=== PATIENT | female | born 1940 | race Caucasian/White ===

== ENCOUNTER → 2016-09-21 | Outpatient (CLI) | payer MEDICARE, OTHER ==
[~2016-09-21] MED LIST: ADVA100A INH; ALBU6.7H INH; ASPI-110 PO; ASPI1TAB69 PO; BETA1TAB5 PO; BOSW5TAB PO; CALTTAB PO; CALTTAB6 PO; CETI10 PO; IBUP200T2 PO; MONT10TA4 PO; NAPR220C22 PO; NIAC500C PO; OMEG1CAP53 PO; VISICAP PO; ZYRT10CA PO
[2016-09-21 10:32] LABS: BLOOD, URINE NEG (NEG); GLUCOSE,URINE NEG (NEG); KETONE, URINE NEG (NEG); NITRITE,URINE NEG (NEG); PH, URINE 6.5 (5.0-8.5); SQUAMOUS EPITHELIAL CELL URINE 1 /hpf (0-5); URINE COLOR YELLOW (YELLW/STRAW)
[2016-09-21 10:34] LABS: COMMENT (UR) CULT NOT INDICATED; CULTURE IF INDICATED CULT NOT INDICATED
[2016-09-21 10:44] LABS: PROTHROMBIN TIME - PATIENT 10.7 SEC (9.8-11.6)
[2016-09-21 10:52] LABS: BICARBONATE 28.2 MEQ/L (21.0-32.0); POTASSIUM 3.9 MEQ/L (3.5-5.1)
--- NOTE | 2016-09-21 11:03 | RADRPT ---
EXAM DATE/TIME: 09/21/2016 10:39 [facility] COMPARISON: No previous studies available for comparison. INDICATIONS : Evaluate for penumonia, pneumothorax or communicable disease. Pre op for arthroscopic knee surgery. MEDICAL HISTORY : Asthma SURGICAL HISTORY : None. ENCOUNTER: Initial ACUITY: 1 day PAIN SCORE: 0/10 LOCATION: chest FINDINGS: PA and lateral views of the chest demonstrate the lungs to be symmetrically aerated without evidence of mass, infiltrate or effusion. The cardiomediastinal contours are unremarkable. Osseous structure s are intact. CONCLUSION: No acute disease. Gerda Solis MD on September 21, 2016 at 11:01 Board Certified Radiologist. This report was verified electronically.
--- NOTE | 2016-09-22 17:50 | EKG ---
Date Performed: 09/21/2016 Time Performed: 09:58:28 PTAGE: 75 years EKG: Sinus rhythm POSSIBLE RIGHT VENTRICULAR CONDUCTION DELAY BORDERLINE ECG NO PREVIOUS TRACING DOCTOR: Gena Galvan Interpretating Date/Time 09/22/2016 17:48:12
== END ==
LOC: CPRE 09:31
PROVIDERS: ATTEND Orthopaedic Surgery
DX: Z01.810 Encounter for preprocedural cardiovascular examination (principal); Z01.811 Encounter for preprocedural respiratory examination; Z01.812 Encounter for preprocedural laboratory examination; R94.31 Abnormal electrocardiogram [ECG] [EKG]; S83.231A Complex tear of medial meniscus, current injury, right knee, initial encounter; X58.XXXA Exposure to other specified factors, initial encounter
CPT/HCPCS: 36415; 71020; 80048; 81001; 85610; 93005

== ENCOUNTER → 2016-09-29 | Day surgery (SDC) | payer MEDICARE, OTHER ==
--- NOTE | 2016-09-26 08:37 | MH ---
cc: MICHELLE HERCULES DATE OF ADMISSION: 09/29/2016 ADMITTING DIAGNOSES 1. Complex tear of the medial meniscus right knee. 2. Osteoarthritis right knee. 3. Effusion right knee. 4. Synovitis right knee. 5. Popliteal cyst right knee. 6. Pain right knee. HISTORY The patient is a 75-year-old white female who has experienced pain of her right knee of at least two months duration. In July of this past year while conforming to routine walking exercise activity, she became symptomatic with pain about the medial aspect of her right knee. She returned home and applied ice and elevated her extremity and thereafter conformed to modified activities. Her pain persisted. She was later seen by her primary care physician. Dr. Banks, who treated the patient with a cortisone injection that unfortunately did not prove to be of any appreciable benefit. She was also prescribed pain medication that was not well tolerated secondary to generalized restless sensation that interfered with the patient's ability to sleep comfortably through the night. She had been taking Advil with minimal benefit. She subsequently underwent an MRI scan of her right knee, the results of which identified a large complex tear of the medial meniscus involving the posterior horn with an extrusion of the body segment. There was osteoarthritic findings about the medial and patellofemoral compartments as well as a subacute-appearing nondisplaced subchondral insufficiency fracture of the medial tibial plateau. An effusion was associated with a moderately severe synovitis and a large popliteal cyst. The patient remained symptomatic with pain about her right knee, experiencing difficulty with all weightbearing activities. She was later seen by the undersigned physician in August of this past year and at that time she described ongoing difficulties as related to ambulatory activities. Her x-ray studies did reveal some mild degenerative changes suggestive about the medial compartment, a more pronounced degenerative process of the patellofemoral articulation. Findings and treatment options were reviewed with the patient at that time. The pros and cons of continuing with conservative management versus operative intervention involving arthroscopic surgery were outlined in detail. Emphasis was made regarding the fact that the decision to proceed with surgery would be left entirely to the patient's discretion and an arthroscopic surgery in itself would not be considered a long-term solution regarding her underlying arthritic condition. The patient indicated her full understanding in this regard. She felt that her symptoms had progressed to a point in time where she was desirous of proceeding with the arthroscopic procedure and, in compliance with her wishes, she is currently being admitted in order that the above be accomplished. PAST MEDICAL HISTORY, HOSPITALIZATIONS AND SURGERIES 1. Varicose vein stripping of the left leg. 2. Partial hysterectomy. 3. Colonoscopy. MEDICAL ILLNESSES Asthma. MEDICATIONS 1. She takes Advair 150 twice daily. 2. Proventil p.r.n. 3. Niacin ER tabs 500 mg daily. 4. Montelukast 10 mg daily. 5. Lovaza 4 capsules daily. 6. An 81 mg aspirin tablet daily. 7. Osteo-Bioflex Caltrate. 8. Vision multi. 9. zinc. 10. Zyrtec daily. 11. Advil on a p.r.n. basis. ALLERGIES The patient describes a drug allergy to CODEINE which has been associated with nausea and vomiting. REVIEW OF SYSTEMS HEENT: She does wear glasses. A history of migraine headaches subsequently resolved. No seizure or syncope. No sinus congestion or epistaxis. Diminished auditory acuity for which hearing aids have been purchased but not utilized. No tinnitus. No bleeding gums or dysphagia. RESPIRATORY: Denies cough, shortness of breath, tuberculosis. There has been a history of pneumonia. CARDIOVASCULAR: No angina or heart disease. GASTROINTESTINAL: Her appetite is good. Bowel movements are regular. No hepatitis, gallbladder disease, ulcers or hemorrhoids. GENITOURINARY: No urinary tract infection. No kidney stones. MUSCULOSKELETAL: Fractures of the left ring finger and right second toe treated nonoperatively. PSYCHIATRIC: The patient has undergone previous psychiatric counseling as associated with a divorce. Her remaining review of systems is unremarkable and noncontributory. FAMILY HISTORY The patient has been for 20 years. Two sons and one daughter, her daughter at 47 years of age with a history of colorectal cancer. One son has undergone previous cardiac surgery. Her family history is otherwise positive for lung cancer and heart disease. SOCIAL HISTORY The patient completed the equivalent of 2 years of college education while growing up in [place]. 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 She denies active use of tobacco and ethanol. PHYSICAL EXAMINATION VITAL SIGNS: Height 5 feet 6 inches, weight 174 pounds. GENERAL: An alert, oriented and responsive 75-year-old white female who sits quietly upon the examination table with no obvious distress. HEAD, EYES, EARS, NOSE, AND THROAT: Pupils are equally round and reactive to light. Extraocular movements full. Sclerae clear. External nares clear. External auditory canals clear. Semi-edentulous in the mandibular distribution. Mucous membranes pink and moist. Pharynx clear. NECK: Supple. Active range of motion without appreciable pain. Carotid pulse bilaterally. Trachea midline. Thyroid without enlargement. LUNGS: Clear to auscultation and percussion. No CVA tenderness. No discomfort throughout the dorsal lumbar spine. HEART: Regular rhythm. No murmur or gallop. ABDOMEN: Soft, nontender. Bowel sounds present. PELVIC: Per primary care physician. EXTREMITIES: Right knee - There is a fullness about the knee consistent with redundancy of soft tissue. No distinct intraarticular effusion. Medial joint line tenderness without palpable deformity. Apprehension and compression sign negative. Guarded mobility in the 90-degree range of flexion with pain at the extreme of motion. No collateral ligamentous instability. Fantasma test and drawer sign negative. Pivot shift and Pieter sign positive for medial compartment pain. Prominent varicosities about the lower leg. Straight-leg raising unremarkable at 80 degrees. The patient is unable to accomplish a deep knee bend maneuver secondary to pain. Satisfactory mobility of the right hip with no associated pain. Pronounced antalgic gait. NEUROLOGIC: Cranial nerves II-XII grossly intact excluding diminished auditory acuity. IMPRESSION 1. Complex tear medial meniscus right knee. 2. Osteoarthritis right knee. 3. Effusion right knee. 4. Synovitis right knee. 5. Popliteal cyst right knee. 6. Pain right knee PLAN Arthroscopic surgery and possible arthrotomy right knee. The nature of the planned surgical procedure, the potential complications and risks associated, the expectations of surgery and the consent form were thoroughly reviewed with the patient prior to her admission to the hospital. Anca has indicated her full understanding regarding all of the above and given her consent to proceed with treatment as outlined. Medical evaluation and clearance for surgery will be completed by her primary care physician, Dr. Banks. MD KATY Panchal/SSB /5:31 PM /8:37 AM
[~2016-09-29] VITALS: Ht 167.6 cm; Wt 79.8 kg
[~2016-09-29] MED LIST changes: +*morphine SULFATE 8 MG/ML PERIprocedure ONLY ONE; +APREPITANT 40 MG CAP ONE; +DEXAMETHASONE SOD PHOS 4 MG/ML VIAL ONE; +DO NOT ADM ANY ANTICOAGULANT DRUGS XX PRN; +FAMOTIDINE 20 MG/2 ML VIAL ONE; +INSULIN HUMAN REGULAR 1,000 UNITS/10 ML VIAL SQ PRN; +KETOROLAC TROMETHAMINE 60 MG/2 ML (IM) VIAL IM ONE; +LACTATED RINGER'S 1000 ML INJ 1,000 ML IV ONE; +LACTATED RINGER'S 1000 ML IV SCH; +LIDOCAINE HCL 2% PF SOLN 10 ML VIAL ONE; +METOPROLOL TARTRATE 25 MG TAB PO PRN; +MIDAZOLAM HCL 2 MG/2 ML VIAL ONE; +MORPHINE SULFATE 10 MG/ML INJ IM PRN; +ONDANSETRON HCL 4 MG/2 ML VIAL IV PUSH ONE; +ONDANSETRON HCL 4 MG/2 ML VIAL ONE; +POVIDONE IODINE 7.5% SCRUB 118 ML BOTTLE TOP SCH; +PROMETHAZINE INJ 25 MG/ML VIAL IM PRN; +PROPOFOL 200 MG/20 ML AMP IV ONE; +RESP: ALBUTEROL 2.5 MG/3 ML NEB (PRN) ONE; +SODIUM CHLORID 0.9% 500 ML IV SCH; +TRIAMCINOLONE ACETONIDE 40 MG/ML VIAL IA ONE; +ceFAZolin 2 GM PREMIX 50 ML IV SCH; +traMADol HCL 50 MG TAB ONE; +traMADol HCL 50 MG TAB PO PRN
[2016-09-29 07:14] VITALS: BP 146/63; PULSE 75; RESP 18; TEMP 98.6; O2SAT 98
[2016-09-29 11:33] VITALS: BP 129/58; PULSE 66; RESP 16; TEMP 97.5; O2SAT 98
--- NOTE | 2016-10-03 18:37 | MP ---
cc: MICHELLE HERCULES DATE OF SURGERY: 09/29/2016 PREOPERATIVE DIAGNOSIS Complex tear medial meniscus right knee osteoarthritis right knee effusion right knee synovitis right knee, popliteal cyst right knee, pain right knee. POSTOPERATIVE DIAGNOSIS Complex tear medial meniscus right knee osteoarthritis right knee effusion right knee synovitis right knee, popliteal cyst right knee, pain right knee. PROCEDURE Partial medial meniscectomy right knee with chondroplasty of the patellofemoral joint. SURGEON Gordon ANESTHESIA General by LMA. FORMAT: Following induction of satisfactory general anesthesia by LMA insertion as completed per the Department of Anesthesia examination of the right knee revealed a satisfactory range of motion with no appreciable ligamentous instability. The extremity proper was positioned at the medical library assistant knee gonzales prepped with Betadine solution and draped into a sterile field in the routine manner. Prior to initiation of the actual procedure the standard time-out protocol was completed all parameters were appropriately addressed and confirmed by operating room personnel. Arthroscopic instrumentation was introduced through stab wound utilizing cannula with sharp and blunt trocar. The inflow irrigation by way of a medial suprapatellar portal. The arthroscope through a lateral parapatellar portal. A probe through a medial parapatellar portal. Examination of the suprapatellar pouch did revealed reactive synovitis with proliferation of synovium. There was a rather pronounced degenerative process throughout the patellofemoral joint with significant erosion of articular cartilage from the femoral side of the joint. Within the medial compartment a degenerative tear involving the body and posterior horn of the medial meniscus was identified. There were associated degenerative changes along the adjacent articular surfaces. The anterior cruciate ligament was identified and noted to be intact. Within the lateral compartment a lesser degenerative process was identified, although proliferative synovium was present. Utilizing a 3.8 aggressive resector a partial medial meniscectomy was accomplished as well as localized debridement throughout the medial compartment involving articular surfaces of the femoral condyle and the tibial plateau. Limited debridement of proliferative synovium within the intercondylar region was accomplished. The shaver was thereafter oriented into the patellofemoral joint where generalized chondroplasty was accomplished as well as additional debridement of reactive synovitis. Upon completion of same the joint space was thoroughly lavaged and suctioned dry and intra-articular Kenalog lidocaine injection was completed. The portal sites were reapproximated with Steri-Strips over which Xeroform gauze and a bulky dry sterile dressing were placed. Anesthesia was discontinued. The patient thus transferred to a hospital stretcher and returned to the recovery room in satisfactory condition having tolerated her operative procedure well. Estimated blood loss was less than 10 cc. MD KATY Panchal/shaniqua /10:13 AM /6:28 PM
== END | disposition home or self-care (01) ==
LOC: HSDC 06:26
PROVIDERS: ATTEND Orthopaedic Surgery
DX: S83.231A Complex tear of medial meniscus, current injury, right knee, initial encounter (principal); M17.11 Unilateral primary osteoarthritis, right knee; M71.21 Synovial cyst of popliteal space [Baker], right knee; M25.461 Effusion, right knee; M65.9 Synovitis and tenosynovitis, unspecified; J45.909 Unspecified asthma, uncomplicated; Z79.82 Long term (current) use of aspirin
CPT/HCPCS: 01400; 29881; 94664; J0690; J1100; J1885; J2250; J2270; J2405; J3010; J3301; J7120; J7613; J8501

== ENCOUNTER 2017-02-02 11:22 | Observation (INO) | payer MEDICARE, OTHER ==
[~2017-02-02] VITALS: Ht 167.6 cm; Wt 79.5 kg
[2017-02-02] VITALS (8 sets, daily range): BP systolic 102–180; BP diastolic 51–80; PULSE 59–89; RESP 15–32; TEMP 97.2–98.4; O2SAT 68–100
[~2017-02-02 11:22] MED LIST changes: -*morphine SULFATE 8 MG/ML PERIprocedure ONLY ONE; -APREPITANT 40 MG CAP ONE; -ASPI-110 PO; -BETA1TAB5 PO; -CALTTAB6 PO; -CETI10 PO; -DEXAMETHASONE SOD PHOS 4 MG/ML VIAL ONE; -DO NOT ADM ANY ANTICOAGULANT DRUGS XX PRN; -FAMOTIDINE 20 MG/2 ML VIAL ONE; -INSULIN HUMAN REGULAR 1,000 UNITS/10 ML VIAL SQ PRN; -KETOROLAC TROMETHAMINE 60 MG/2 ML (IM) VIAL IM ONE; -LACTATED RINGER'S 1000 ML INJ 1,000 ML IV ONE; -LACTATED RINGER'S 1000 ML IV SCH; -LIDOCAINE HCL 2% PF SOLN 10 ML VIAL ONE; -METOPROLOL TARTRATE 25 MG TAB PO PRN; -MIDAZOLAM HCL 2 MG/2 ML VIAL ONE; -MORPHINE SULFATE 10 MG/ML INJ IM PRN; -NAPR220C22 PO; -ONDANSETRON HCL 4 MG/2 ML VIAL IV PUSH ONE; -ONDANSETRON HCL 4 MG/2 ML VIAL ONE; -POVIDONE IODINE 7.5% SCRUB 118 ML BOTTLE TOP SCH; -PROMETHAZINE INJ 25 MG/ML VIAL IM PRN; -PROPOFOL 200 MG/20 ML AMP IV ONE; -RESP: ALBUTEROL 2.5 MG/3 ML NEB (PRN) ONE; -SODIUM CHLORID 0.9% 500 ML IV SCH; -TRIAMCINOLONE ACETONIDE 40 MG/ML VIAL IA ONE; -ceFAZolin 2 GM PREMIX 50 ML IV SCH; -traMADol HCL 50 MG TAB ONE; -traMADol HCL 50 MG TAB PO PRN
[2017-02-02] MEDS ORDERED: SODIUM CHLOR 0.9% 1000 ML INJ 1,000 ML IV SCH (11:26)
[2017-02-02] MEDS ORDERED: HYDROmorphone HCL PF 1 MG/ML VIAL IVS ONE (11:30)
[2017-02-02] MEDS ORDERED: ONDANSETRON HCL 4 MG/2 ML VIAL IVP ONE (11:30)
[2017-02-02] MEDS: SODIUM CHLORIDE 0.9% FLUSH 10 ML FLUSH IV FLUSH PRN ×2 (11:36→13:09)
--- NOTE | 2017-02-02 11:40 | PD ---
HPI Chief Complaint: Abdominal Pain Time Seen by Provider: 11:32 Travel History International Travel<30 days: No Contact w/Intl Traveler<30days: No Traveled to known affect area: No History of Present Illness HPI 76-year-old female with history of asthma presents to the ED for evaluation of 10/10 abdominal pain, nausea and shortness of breath. Onset of symptoms around "9:30 or 10" this morning. Patient denies fevers, chills, chest pain, palpitations, vomiting, changes in bowel habits, melena, hematochezia, dysuria or back pain. States last bowel movement was this morning, described as "normal." Last meal, coffee and toast, around 8:30 this morning. PFSH Past Medical History Cancer: No Cardiovascular Problems: No Diabetes: No Endocrine: No Genitourinary: No Hepatitis: No Hiatal Hernia: No Immune Disorder: No Musculoskeletal: Yes (RIGHT KNEE PAIN) Neurologic: No Psychiatric: No Reproductive: No Respiratory: Yes (ASTHMA) Thyroid Disease: No Past Surgical History Abdominal Surgery: No AICD: No Body Medical Devices: NONE Cardiac Surgery: No Ear Surgery: No Endocrine Surgery: No Eye Surgery: No Genitourinary Surgery: No Gynecologic Surgery: Yes (PARTIAL HYSTERECTOMY) Hysterectomy: Yes Joint Replacement: No Oral Surgery: No Pacemaker: No Thoracic Surgery: No Social History Tobacco Use: No Substance Use: No Allergies-Medications (Allergen,Severity, Reaction): Coded Allergies: Acetaminophen (Verified Allergy, Severe, Itching, 02/02/17) Codeine (Verified Adverse Reaction, Severe, Nausea/Vomiting, 02/02/17) Reported Meds & Prescriptions Reported Meds & Active Scripts Active Reported Vision Vitamins (Beta-Carotene(A)-Vits C,E/Mins) 1 Each Tablet 1 Cap PO DAILY Aspirin 81 (Aspirin) 81 Mg Tabdr 81 Mg PO DAILY Cetirizine (Cetirizine HCl) 10 Mg Tab 10 Mg PO DAILY Caltrate 600+D Plus Welcome Wagon Host/Hostess 600-800 mg-Unit (Calcium Carbonate-Vitamin D W/) 1 Tab Tab 1 Tab PO DAILY Aleve (Naproxen Sodium) 220 Mg Capsule 220 Cap PO BID Proventil Hfa 6.7 GM Inh (Albuterol Sulfate) 90 Mcg/Act Aer 2 Puff INH Q4-6H PRN Lovaza (Pjysy-5-Ewhn Ethyl Esters) 1 Gm Cap 4 Gm PO DAILY Montelukast (Montelukast Sodium) 10 Mg Tab 10 Mg PO HS Advair Diskus Inh (Fluticasone-Salmeterol Inh) 100-50 Mcg/Blist Aer 1 Puff INH BID Rinse mouth after use. Review of Systems Except as stated in HPI: all other systems reviewed are Neg Physical Exam Narrative GENERAL: Well-nourished, well-developed white female, trembling and pain, in no acute distress. SKIN: Focused skin assessment warm/dry. HEAD: Normocephalic. EYES: No scleral icterus. No injection or drainage. NECK: Supple, trachea midline. No JVD or lymphadenopathy. CARDIOVASCULAR: Regular rate and rhythm without murmurs, gallops, or rubs. RESPIRATORY: Breath sounds clear and equal bilaterally. No accessory muscle use. GASTROINTESTINAL: Abdomen nondistended. 8-10 cm tender, firm, palpable mass in the right upper quadrant consistent with abdominal hernia/ incarcerated bowel. Hypoactive bowel sounds. No skin changes. No peritonitis. MUSCULOSKELETAL: No cyanosis, or edema. Patient is ambulatory and moves extremities spontaneously. BACK: Nontender without obvious deformity. No CVA tenderness. Data Data Last Documented VS Vital Signs Date Time Temp Pulse Resp B/P Pulse Ox O2 Delivery O2 Flow Rate FiO2 02/02/17 13:12 68 32 132/62 99 Nasal Cannula 2 Orders Electrocardiogram (02/02/17 ) Complete Blood Count With Diff (02/02/17 11:26) Comprehensive Metabolic Panel (02/02/17 11:26) Lipase (02/02/17 11:26) Lactic Acid (02/02/17 11:26) Prothrombin Time / Inr (Pt) (02/02/17 11:26) Act Partial Throm Time (Ptt) (02/02/17 11:26) Urinalysis - C+S If Indicated (02/02/17 11:26) Iv Access Insert/Monitor (02/02/17 11:26) Ecg Monitoring (02/02/17 11:26) Oximetry (02/02/17 11:26) NPO (02/02/17 11:26) Ondansetron Inj (Zofran Inj) (02/02/17 11:30) Sodium Chlor 0.9% 1000 Ml Inj (Ns 1000 M (02/02/17 11:26) Sodium Chloride 0.9% Flush (Ns Flush) (02/02/17 11:30) Electrocardiogram (02/02/17 11:26) Hydromorphone Pf Inj (Dilaudid Pf Inj) (02/02/17 11:30) Hydromorphone Pf Inj (Dilaudid Pf Inj) (02/02/17 12:30) Midazolam Inj (Versed Inj) (02/02/17 12:30) Ct Abd/Pel W Iv Contrast(Rout) (02/02/17 13:15) Iohexol 350 Inj (Omnipaque 350 Inj) (02/02/17 13:51) Admit Order (Ed Use Only) (02/02/17 14:44) Consult General Surgery (02/02/17 ) Place In Observation (02/02/17 ) Vital Signs (Adult) Q4H (02/02/17 14:44) Diet Npo (02/02/17 Dinner) Sodium Chlor 0.9% 1000 Ml Inj (Ns 1000 M (02/02/17 14:44) Sodium Chloride 0.9% Flush (Ns Flush) (02/02/17 14:45) Sodium Chloride 0.9% Flush (Ns Flush) (02/02/17 21:00) Ondansetron Inj (Zofran Inj) (02/02/17 14:45) Comprehensive Metabolic Panel (02/03/17 06:00) Complete Blood Count With Diff (02/03/17 06:00) Pt Request For Service (02/02/17 14:44) Case Management Consult (02/02/17 14:44) Scd Bilateral/Knee High ROBI.BID (02/02/17 14:44) Naloxone Inj (Narcan Inj) (02/02/17 14:45) Docusate Sodium-Senna (Geraldine-Colace) (02/02/17 21:00) Magnesium Hydroxide Liq (Milk Of Magnesi (02/02/17 14:45) Sennosides (Senokot) (02/02/17 14:45) Bisacodyl Supp (Dulcolax Supp) (02/02/17 14:45) Lactulose Liq (Lactulose Liq) (02/02/17 14:45) Labs Laboratory Tests Test 02/02/17 11:30 White Blood Count 7.9 TH/MM3 Red Blood Count 4.73 MIL/MM3 Hemoglobin 14.7 GM/DL Hematocrit 41.3 % Mean Corpuscular Volume 87.4 FL Mean Corpuscular Hemoglobin 31.1 PG Mean Corpuscular Hemoglobin 35.6 % Concent Red Cell Distribution Width 13.2 % Platelet Count 237 TH/MM3 Mean Platelet Volume 9.4 FL Neutrophils (%) (Auto) 53.4 % Lymphocytes (%) (Auto) 30.9 % Monocytes (%) (Auto) 11.2 % Eosinophils (%) (Auto) 3.5 % Basophils (%) (Auto) 1.0 % Neutrophils # (Auto) 4.2 TH/MM3 Lymphocytes # (Auto) 2.4 TH/MM3 Monocytes # (Auto) 0.9 TH/MM3 Eosinophils # (Auto) 0.3 TH/MM3 Basophils # (Auto) 0.1 TH/MM3 CBC Comment DIFF FINAL Differential Comment Prothrombin Time 10.5 SEC Prothromb Time International 1.0 RATIO Ratio Activated Partial 28.1 SEC Thromboplast Time Sodium Level 137 MEQ/L Potassium Level 3.6 MEQ/L Chloride Level 101 MEQ/L Carbon Dioxide Level 27.2 MEQ/L Anion Gap 9 MEQ/L Blood Urea Nitrogen 15 MG/DL Creatinine 0.66 MG/DL Estimat Glomerular Filtration 88 ML/MIN Rate Random Glucose 103 MG/DL Lactic Acid Level 1.4 mmol/L Calcium Level 9.1 MG/DL Total Bilirubin 0.4 MG/DL Aspartate Amino Transf 22 U/L (AST/SGOT) Alanine Aminotransferase 35 U/L (ALT/SGPT) Alkaline Phosphatase 67 U/L Total Protein 7.5 GM/DL Albumin 4.1 GM/DL Lipase 242 U/L [facility] Medical Decision Making Medical Screen Exam Complete: Yes Emergency Medical Condition: Yes Interpretation(s) EKG rate 63, sinus rhythm. PA interval 179, QRS 93, QTc 407. No ST changes. Reviewed by Dr. Medina. Differential Diagnosis ventral hernia versus incarcerated hernia versus bowel obstruction versus other Narrative Course 76-year-old female with history of asthma presents to the ED for evaluation of 10/10 abdominal pain, nausea and shortness of breath. Onset of symptoms around "9:30 or 10" this morning. Patient denies fevers, chills, chest pain, palpitations, vomiting, changes in bowel habits, melena, hematochezia, dysuria or back pain. States last bowel movement was this morning, described as "normal." Last meal, coffee and toast, around 8:30 this morning. Vitals reviewed. Physical exam reveals a elderly white female, shaking in pain, in no acute distress. There is a 8-10 cm tender, firm, palpable mass in the RUQ consistent with incarcerated hernia. Hypoactive bowel sounds. No peritonitis or skin changes. IV was established. Patient was administered 500mL NS, 0.5mg morphine, 4 mg Zofran IV. Ice pack was applied. CBC: CBC 7.9, hemoglobin 14.7. Coags: INR 1.0. CMP: Unremarkable. Lactic acid: 1.4. Lipase: 242. On recheck the hernia has reduced. Patient is TTP in the area, but no mass is palpable. CT abdomen and pelvis: 1. Circumferential mural thickening of several loops of proximal small bowel in the jejunal region. Differential diagnosis includes enteritis. Can't exclude other etiologies including lymphoma. Recommend followup examination per clinical course. 2. There are numerous hepatic cysts. Small hiatal hernia. Left renal cysts. Mild constipation. 3. Peribronchial thickening in the left lower lobe associated with some distal airway disease. 4. 3.4 cm supraumbilical ventral hernia containing omentum. I discussed the case with Dr. Medina who recommends observation. I discussed this plan with the patient and her family who are agreeable. PCP Dr. Banks. Consult placed with general surgery. I spoke with Dr. Rogers who agrees to accept the patient to the medicine service for observation. Please see medicine and general surgery notes for disposition. Diagnosis Primary Impression: Abdominal hernia Qualified Code: K45.8 - Other specified abdominal hernia without obstruction or gangrene Antoinette Lind February 02, 2017 11:40
[2017-02-02 11:53] LABS: AUTOMATED NEUTROPHIL # 4.2 TH/MM3 (1.8-7.7); BASOPHIL # 0.1 TH/MM3 (0-0.2); EOSINOPHIL # 0.3 TH/MM3 (0-0.4); EOSINOPHIL % 3.5 % (0.0-4.0); HEMATOCRIT 41.3 % (35.0-46.0); HEMO FLAGS DIFF FINAL; LYMPH % 30.9 % (9.0-44.0); LYMPHOCYTE # 2.4 TH/MM3 (1.0-4.8); MEAN CELL VOLUME 87.4 FL (80.0-100.0); MEAN CORPUSCULAR HEMOGLOBIN 31.1 PG (27.0-34.0); MEAN CORPUSCULAR HGB CONC 35.6 % (32.0-36.0); MONO % 11.2 % (0.0-8.0); NEUT % 53.4 % (16.0-70.0); PLATELET COUNT 237 TH/MM3 (150-450); RED BLOOD COUNT 4.73 MIL/MM3 (4.00-5.30); RED CELL DISTRIBUTION WIDTH 13.2 % (11.6-17.2); WHITE BLOOD COUNT 7.9 TH/MM3 (4.0-11.0)
[2017-02-02] MEDS ORDERED: NAPR220C22 PO (11:54)
[2017-02-02] MEDS ORDERED: CETI10 PO (11:55)
[2017-02-02] MEDS ORDERED: ASPI-110 PO (11:55)
[2017-02-02] MEDS ORDERED: CALTTAB6 PO (11:55)
[2017-02-02] MEDS ORDERED: BETA1TAB5 PO (11:57)
[2017-02-02 12:04] LABS: APTT (PATIENT) 28.1 SEC (24.3-30.1); PROTHROMBIN TIME - PATIENT 10.5 SEC (9.8-11.6)
[2017-02-02 12:17] LABS: ALT (GPT) 35 U/L (10-53); ANION GAP 9 MEQ/L (5-15); AST (GOT) 22 U/L (15-37); BICARBONATE 27.2 MEQ/L (21.0-32.0); BLOOD UREA NITROGEN 15 MG/DL (7-18); CHLORIDE 101 MEQ/L (98-107); GLOMERULAR FILTRATION RATE 88 ML/MIN (>89); POTASSIUM 3.6 MEQ/L (3.5-5.1); SODIUM (NA) 137 MEQ/L (136-145)
[2017-02-02 12:19] LABS: ALKALINE PHOSPHATASE 67 U/L (45-117); TOTAL BILIRUBIN ADULT 0.4 MG/DL (0.2-1.0)
[2017-02-02] MEDS ORDERED: HYDROmorphone HCL PF 1 MG/ML VIAL IV PUSH ONE (12:30)
[2017-02-02] MEDS: MIDAZOLAM HCL 2 MG/2 ML VIAL IV PUSH ONE ×2 (12:30→13:07)
[2017-02-02] MEDS ORDERED: IOHEXOL 350 MG/ML 10 ML VIAL (for RAD DIAG) IV ONE (13:51)
--- NOTE | 2017-02-02 14:17 | RADRPT ---
EXAM DATE/TIME: 02/02/2017 13:46 [facility] COMPARISON: No previous studies available for comparison. INDICATIONS : Abdominal pain since this morning. IV CONTRAST: 85 cc Omnipaque 350 (iohexol) IV ORAL CONTRAST: No oral contrast ingested. RADIATION DOSE: 9.96 CTDIvol (mGy) MEDICAL HISTORY : None SURGICAL HISTORY : Hysterectomy. ENCOUNTER: Initial ACUITY: 1 day PAIN SCALE: 8/10 LOCATION: Epigastric pain TECHNIQUE: Volumetric scanning of the abdomen and pelvis was performed. Using automated exposure control and ad justment of the mA and/or kV according to patient size, radiation dose was kept as low as reasonably achievable to obtain optimal diagnostic quality images. FINDINGS: Lung bases demonstrate dependent atelectasis. There is also some peribronchial thickening especially at the left lung base with mild distal airway disease. Numerous hepatic cysts are present measuring up to about 3.3 cm in the hepatic dome. Spleen, adrenals , right kidney and pancreas unremarkable. There is a 2.7 cm cyst lower pole left kidney. There are several loops of proximal small bowel in the jejunal area that demonstrate circumferential mural thickening. Findings are nonspecific. Enteritis could give this appearance. There is no associa kilo obstruction. There is a 3.4 cm ventral hernia above the umbilicus which appears to contain mostly omentum.. No pel sanna mass or free fluid. Mild constipation. Moderate to advanced degenerative disc disease in the lumb ar spine. CONCLUSION: 1. Circumferential mural thickening of several loops of proximal small bowel in the jejunal region. D ifferential diagnosis includes enteritis. Can't exclude other etiologies including lymphoma. Recommen d followup examination per clinical course. 2. There are numerous hepatic cysts. Small hiatal hernia. Left renal cysts. Mild constipation. 3. Peribronchial thickening in the left lower lobe associated with some distal airway disease. 4. 3.4 cm supraumbilical ventral hernia containing omentum. Alejandro Kemp MD on February 02, 2017 at 14:01 Board Certified Radiologist. This report was verified electronically.
[2017-02-02] MEDS ORDERED: SENNOSIDES 8.6 MG TAB PO PRN (14:45)
[2017-02-02] MEDS ORDERED: LACTULOSE SYRUP 20 GM/30 ML CUP PO PRN (14:45)
[2017-02-02] MEDS ORDERED: ONDANSETRON HCL 4 MG/2 ML VIAL IVP PRN (14:45)
[2017-02-02] MEDS ORDERED: BISACODYL 10 MG SUPP RECTAL PRN (14:45)
[2017-02-02] MEDS ORDERED: SODIUM CHLORIDE 0.9% FLUSH 10 ML FLUSH IV FLUSH PRN (14:45)
[2017-02-02] MEDS ORDERED: MAGNESIUM HYDROXIDE SUSP 30 ML CUP PO PRN (14:45)
[2017-02-02] MEDS ORDERED: NALOXONE HCL 0.4 MG/ML AMP IV PRN (14:45)
[2017-02-02] MEDS ORDERED: ALBUTEROL SULFATE 90 MCG/ACT HFA 18 GM INHALER INH PRN (15:00)
[2017-02-02] MEDS: SODIUM CHLOR 0.9% 1000 ML INJ 1,000 ML IV SCH (15:04)
[2017-02-02] MEDS ORDERED: ONDANSETRON HCL 4 MG/2 ML VIAL IV PUSH ONE (15:15)
--- NOTE | 2017-02-02 16:32 | PD.CONS ---
cc: Jj Sharif MD HPI Service General Surgery Consult Requested By Antoinette PADILLA Reason for Consult Evaluation of supraumbilical hernia Primary Care Physician Carolina Banks MD History of Present Illness This is a 76-year-old female with a past medical history of asthma. She was in her usual state of health until this morning at approximately 9:30 AM when she developed severe 10 out of 10 abdominal pain. The pain is a dull ache, no exacerbating or relieving factors. She has not had severe pain like this before. She does report nausea with no vomiting. She noticed a small bulge out of her abdomen just above her umbilicus. She last ate coffee and toast around 8 :30 AM with no issues. She had a normal bowel movement this morning. A General Surgery consultation has been requested for evaluation of a supraumbilical hernia. Review of Systems Constitutional: DENIES: Fever, Weight gain Endocrine: DENIES: Polydipsia, Polyuria, Polyphagia Eyes: DENIES: Blurred vision, Diplopia Ears, nose, mouth, throat: DENIES: Hearing loss, Vertigo Respiratory: DENIES: Apneas, Cough Cardiovascular: DENIES: Chest pain Gastrointestinal: COMPLAINS OF: Abdominal pain, Nausea, DENIES: Diarrhea, Vomiting Genitourinary: DENIES: Urinary frequency, Urinary incontinence, Urgency Musculoskeletal: DENIES: Muscle aches, Stiffness Integumentary: DENIES: Abnormal pigmentation Hematologic/lymphatic: DENIES: Bruising Immunologic/allergic: DENIES: Eczema Neurologic: DENIES: Abnormal gait Psychiatric: DENIES: Confusion, Mood changes, Depression Past Family Social History Past Medical History Asthma Past Surgical History Total vaginal hysterectomy Reported Medications 81 mg aspirin Allergies: Coded Allergies: Acetaminophen (Verified Allergy, Severe, Itching, 02/02/17) Codeine (Verified Adverse Reaction, Severe, Nausea/Vomiting, 02/02/17) Active Ordered Medications Current Medications Medications (Trade) Dose Ordered Sig/Lyly Route Start Time Stop Time Status Last Admin (NS 1000 ml Inj) 1,000 ml @ 100 mls/hr Q10H IV 02/02/17 14:44 02/02/17 15:04 (NS Flush) 2 ml UNSCH PRN IV FLUSH 02/02/17 14:45 (NS Flush) 2 ml BID IV FLUSH 02/02/17 21:00 (Zofran Inj) 4 mg Q6H PRN IVP 02/02/17 14:45 (Narcan Inj) 0.4 mg UNSCH PRN IV 02/02/17 14:45 (Geraldine-Colace) 1 tab BID PO 02/02/17 21:00 (Milk Of Magnesia Liq) 30 ml Q12H PRN PO 02/02/17 14:45 (Senokot) 17.2 mg Q12H PRN PO 02/02/17 14:45 (Dulcolax Supp) 10 mg DAILY PRN RECTAL 02/02/17 14:45 (Lactulose Liq) 30 ml DAILY PRN PO 02/02/17 14:45 (Ventolin Hfa Inh) 2 puff Q4H PRN INH 02/02/17 15:00 (Symbicort 80-4.5 Mcg Inh) 2 puff BID INH 02/02/17 21:00 Family History Noncontributory Social History Denies tobacco use Denies EtOH use Denies illicit drug use Physical Exam Vital Signs Vital Signs Date Time Temp Pulse Resp B/P Pulse Ox O2 Delivery O2 Flow Rate FiO2 02/02/17 15:03 59 15 127/61 96 Nasal Cannula 2.0 02/02/17 15:00 18 02/02/17 13:12 68 32 132/62 99 Nasal Cannula 2 02/02/17 12:06 12 02/02/17 11:59 68 22 179/75 98 02/02/17 11:28 89 24 180/80 99 Room Air 02/02/17 11:25 100 Room Air Physical Exam GENERAL: 76 year old female resting in bed no acute distress. SKIN: Warm and dry. HEAD: Atraumatic. Normocephalic. EYES: Pupils equal and round. No scleral icterus. No injection or drainage. ENT: No nasal bleeding or discharge. Mucous membranes pink and moist. NECK: Trachea midline. CARDIOVASCULAR: Regular rate and rhythm. RESPIRATORY: No accessory muscle use. Clear to auscultation. Breath sounds equal bilaterally. GASTROINTESTINAL: Abdomen soft, nondistended. Tenderness with palpation in the supraumbilical region. MUSCULOSKELETAL: Extremities without clubbing, cyanosis, or edema. No obvious deformities. NEUROLOGICAL: Awake and alert. No obvious cranial nerve deficits. Motor grossly within normal limits. Five out of 5 muscle strength in the arms and legs. Normal speech. PSYCHIATRIC: Appropriate mood and affect; insight and judgment normal. Laboratory Laboratory Tests Test 02/02/17 11:30 White Blood Count 7.9 Red Blood Count 4.73 Hemoglobin 14.7 Hematocrit 41.3 Mean Corpuscular Volume 87.4 Mean Corpuscular Hemoglobin 31.1 Mean Corpuscular Hemoglobin 35.6 Concent Red Cell Distribution Width 13.2 Platelet Count 237 Mean Platelet Volume 9.4 Neutrophils (%) (Auto) 53.4 Lymphocytes (%) (Auto) 30.9 Monocytes (%) (Auto) 11.2 Eosinophils (%) (Auto) 3.5 Basophils (%) (Auto) 1.0 Neutrophils # (Auto) 4.2 Lymphocytes # (Auto) 2.4 Monocytes # (Auto) 0.9 Eosinophils # (Auto) 0.3 Basophils # (Auto) 0.1 CBC Comment DIFF FINAL Differential Comment Prothrombin Time 10.5 Prothromb Time International 1.0 Ratio Activated Partial 28.1 Thromboplast Time Sodium Level 137 Potassium Level 3.6 Chloride Level 101 Carbon Dioxide Level 27.2 Anion Gap 9 Blood Urea Nitrogen 15 Creatinine 0.66 Estimat Glomerular Filtration 88 Rate Random Glucose 103 Lactic Acid Level 1.4 Calcium Level 9.1 Total Bilirubin 0.4 Aspartate Amino Transf 22 (AST/SGOT) Alanine Aminotransferase 35 (ALT/SGPT) Alkaline Phosphatase 67 Total Protein 7.5 Albumin 4.1 Lipase 242 Imaging Last 48 hours Impressions Abdomen/Pelvis CT 02/02/17 1315 Signed Impressions: Service Date/Time: Thursday, February 02, 2017 13:46 - CONCLUSION: 1. Circumferential mural thickening of several loops of proximal small bowel in the jejunal region. Differential diagnosis includes enteritis. Can't exclude other etiologies including lymphoma. Recommend followup examination per clinical course. 2. There are numerous hepatic cysts. Small hiatal hernia. Left renal cysts. Mild constipation. 3. Peribronchial thickening in the left lower lobe associated with some distal airway disease. 4. 3.4 cm supraumbilical ventral hernia containing omentum. Alejandro Kemp MD Assessment and Plan Assessment and Plan This is a 76 year old female with incarcerated supraumbilical hernia; spontaneously resolved without manual reduction. -Start clear liquids; advance diet as tolerated -Pain control -Monitor for recurrent hernia -If stable overnight, patient can DC home and follow up with Dr. Sharif for possible elective hernia repair -Thank you for this consult Discussed Condition With Dr. Kole Medina Merced Ivan Attending Statement Patient with symptomatic ventral hernia, s/p reduction will admit and observe overnight to r/o bowel injury discussed with patient and she understands and agrees pt will need out pt repair of hernia discussed the risks of recurrence Attestation The exam, history, and the medical decision-making described in the above note were completed with the assistance of the mid-level provider. I reviewed and agree with the findings presented. I attest that I had a [id number] encounter with the patient on the same day, and personally performed and documented my assessment and findings in the medical record. Constanza Henderson February 02, 2017 16:32 Jj Sharif MD Feb 12, 2017 22:10
[2017-02-02] MEDS ORDERED: SODIUM CHLORIDE 0.9% FLUSH 10 ML FLUSH IV FLUSH SCH (21:00)
[2017-02-02] MEDS ORDERED: BUDESONIDE-FORMOTEROL 80/4.5 MCG INHALER INH SCH (21:00)
[2017-02-02] MEDS: DOCUSATE SODIUM 50 MG/SENNA 8.6 MG TAB PO SCH (22:35)
--- NOTE | 2017-02-02 23:37 | HHI.HP ---
HPI Service [facility] Primary Care Physician Carolina Banks MD Admission Diagnosis ventral hernia Diagnoses: Travel History International Travel<30 Days: No Contact w/Intl Traveler <30 Da: No Traveled to Known Affected Are: No History of Present Illness Patient seen 02/02 around 4 PM. States that sharp epigastric pain started this morning after getting out of the shower. No previous pain like this. Pain subsequently resolved. No history of exertional chest pain or shortness of breath. No history of heart disease. patient is afraid to go home if pain recurs. Patient seen by surgery, and hernia appears to have resolved for now. Review of Systems performed and negative except for HPI and past medical history. Past Family Social History Past Medical History Allergic rhinitis Asthma Past Surgical History Right knee surgery Partial hysterectomy Reported Medications Reported Meds & Active Scripts Active Reported Vision Vitamins (Beta-Carotene(A)-Vits C,E/Mins) 1 Each Tablet 1 Cap PO DAILY Aspirin 81 (Aspirin) 81 Mg Tabdr 81 Mg PO DAILY Cetirizine (Cetirizine HCl) 10 Mg Tab 10 Mg PO DAILY Caltrate 600+D Plus [place] 600-800 mg-Unit (Calcium Carbonate-Vitamin D W/) 1 Tab Tab 1 Tab PO DAILY Aleve (Naproxen Sodium) 220 Mg Capsule 220 Cap PO BID Proventil Hfa 6.7 GM Inh (Albuterol Sulfate) 90 Mcg/Act Aer 2 Puff INH Q4-6H PRN Lovaza (Vxekt-2-Sifr Ethyl Esters) 1 Gm Cap 4 Gm PO DAILY Montelukast (Montelukast Sodium) 10 Mg Tab 10 Mg PO HS Advair Diskus Inh (Fluticasone-Salmeterol Inh) 100-50 Mcg/Blist Aer 1 Puff INH BID Rinse mouth after use. Allergies: Coded Allergies: Acetaminophen (Verified Allergy, Severe, Itching, 02/02/17) Codeine (Verified Adverse Reaction, Severe, Nausea/Vomiting, 02/02/17) Family History Mother from lung cancer. Daughter from colorectal cancer Social History Nonsmoker, nondrinker. Denies illicit drugs. Physical Exam Vital Signs Vital Signs Date Time Temp Pulse Resp B/P Pulse Ox O2 Delivery O2 Flow Rate FiO2 02/02/17 23:21 98.1 63 18 102/51 68 02/02/17 20:10 98.4 77 18 125/61 96 02/02/17 16:44 97.2 62 18 130/60 95 02/02/17 15:03 59 15 127/61 96 Nasal Cannula 2.0 02/02/17 15:00 18 02/02/17 13:12 68 32 132/62 99 Nasal Cannula 2 02/02/17 12:06 12 02/02/17 11:59 68 22 179/75 98 02/02/17 11:28 89 24 180/80 99 Room Air 02/02/17 11:25 100 Room Air Physical Exam GENERAL: This is a well-nourished, well-developed patient, in no apparent distress.alert and oriented 3. SKIN: No rashes, ecchymoses or lesions. Cool and dry. HEAD: Atraumatic. Normocephalic. No temporal or scalp tenderness. EYES: Pupils equal round and reactive. Extraocular motions intact. No scleral icterus. No injection or drainage. ENT: Nose without bleeding, purulent drainage or septal hematoma. Throat without erythema, tonsillar hypertrophy or exudate. Uvula midline. Airway patent. NECK: Trachea midline. No JVD or lymphadenopathy. Supple, nontender, no meningeal signs. CARDIOVASCULAR: Regular rate and rhythm without murmurs, gallops, or rubs. RESPIRATORY: Clear to auscultation. Breath sounds equal bilaterally. No wheezes , rales, or rhonchi. GASTROINTESTINAL: Abdomen soft, non-tender, nondistended. No hepato-splenomegaly , or palpable masses. No guarding. MUSCULOSKELETAL: Extremities without clubbing, cyanosis, or edema. No joint tenderness, effusion, or edema noted. No calf tenderness. Negative Homans sign bilaterally. NEUROLOGICAL: Awake and alert. Cranial nerves II through XII intact. Motor and sensory grossly within normal limits. Five out of 5 muscle strength in all muscle groups. Normal speech. Laboratory Laboratory Tests Test 02/02/17 11:30 White Blood Count 7.9 Red Blood Count 4.73 Hemoglobin 14.7 Hematocrit 41.3 Mean Corpuscular Volume 87.4 Mean Corpuscular Hemoglobin 31.1 Mean Corpuscular Hemoglobin 35.6 Concent Red Cell Distribution Width 13.2 Platelet Count 237 Mean Platelet Volume 9.4 Neutrophils (%) (Auto) 53.4 Lymphocytes (%) (Auto) 30.9 Monocytes (%) (Auto) 11.2 Eosinophils (%) (Auto) 3.5 Basophils (%) (Auto) 1.0 Neutrophils # (Auto) 4.2 Lymphocytes # (Auto) 2.4 Monocytes # (Auto) 0.9 Eosinophils # (Auto) 0.3 Basophils # (Auto) 0.1 CBC Comment DIFF FINAL Differential Comment Prothrombin Time 10.5 Prothromb Time International 1.0 Ratio Activated Partial 28.1 Thromboplast Time Sodium Level 137 Potassium Level 3.6 Chloride Level 101 Carbon Dioxide Level 27.2 Anion Gap 9 Blood Urea Nitrogen 15 Creatinine 0.66 Estimat Glomerular Filtration 88 Rate Random Glucose 103 Lactic Acid Level 1.4 Calcium Level 9.1 Total Bilirubin 0.4 Aspartate Amino Transf 22 (AST/SGOT) Alanine Aminotransferase 35 (ALT/SGPT) Alkaline Phosphatase 67 Total Protein 7.5 Albumin 4.1 Lipase 242 Result Diagram: 02/02/17 1130 02/02/17 1130 Imaging Last Impressions Abdomen/Pelvis CT 02/02/17 1315 Signed Impressions: Service Date/Time: Thursday, February 02, 2017 13:46 - CONCLUSION: 1. Circumferential mural thickening of several loops of proximal small bowel in the jejunal region. Differential diagnosis includes enteritis. Can't exclude other etiologies including lymphoma. Recommend followup examination per clinical course. 2. There are numerous hepatic cysts. Small hiatal hernia. Left renal cysts. Mild constipation. 3. Peribronchial thickening in the left lower lobe associated with some distal airway disease. 4. 3.4 cm supraumbilical ventral hernia containing omentum. Alejandro Kemp MD Assessment and Plan Assessment and Plan //Abdominal hernia. With associated nausea or vomiting. Close monitoring and observation. Appreciate general surgery assistance. Chronic asthma. Continue home medications. Prophylaxis. As per surgical service. Discussed Condition With ED physician,patient Abel Rogers MD February 02, 2017 23:37
[2017-02-03 04:12] VITALS: BP 108/55; PULSE 66; RESP 18; TEMP 98; O2SAT 96
[2017-02-03] MEDS: SODIUM CHLOR 0.9% 1000 ML INJ 1,000 ML IV SCH (06:11)
[2017-02-03 07:56] VITALS: BP 119/56; PULSE 66; RESP 23; TEMP 97.8; O2SAT 93
--- NOTE | 2017-02-03 08:38 | HHI.PR ---
Subjective Remarks Follow-up for abdominal hernia. The patient is doing well today. She denies any issues overnight. Patient states that she had epigastric pain after getting out of the shower yesterday. While in the ED they noticed a epigastric mass. She was noted to have a ventral hernia in the ED, which had already resolve spontaneously prior to reduction. The patient denies any abdominal pain , although the area is still little tender to touch. She denies any recurrence of symptoms. She is tolerating clear liquids. She denies any nausea, vomiting , or diarrhea. She's been ambulating here with no issues. She states that she was seen by the surgeon who told her that he wanted her to follow-up with him for possible elective hernia repair. Objective Vitals Vital Signs Date Time Temp Pulse Resp B/P Pulse Ox O2 Delivery O2 Flow Rate FiO2 02/03/17 07:56 97.8 66 23 119/56 93 02/03/17 04:12 98.0 66 18 108/55 96 02/02/17 23:21 98.1 63 18 102/51 68 02/02/17 20:10 98.4 77 18 125/61 96 02/02/17 16:44 97.2 62 18 130/60 95 02/02/17 15:03 59 15 127/61 96 Nasal Cannula 2.0 02/02/17 15:00 18 02/02/17 13:12 68 32 132/62 99 Nasal Cannula 2 02/02/17 12:06 12 02/02/17 11:59 68 22 179/75 98 02/02/17 11:28 89 24 180/80 99 Room Air 02/02/17 11:25 100 Room Air I/O 02/02/17 02/02/17 02/02/17 02/03/17 02/03/17 02/03/17 07:00 15:00 23:00 07:00 15:00 23:00 Intake Total 1000 ml 400 ml Output Total 1000 ml Balance 1000 ml -600 ml Intake Oral 400 ml IV Total 1000 ml Output Urine Total 1000 ml # Voids 2 Result Diagram: 02/02/17 1130 02/02/17 1130 Imaging Last Impressions Abdomen/Pelvis CT 02/02/17 1315 Signed Impressions: Service Date/Time: Thursday, February 02, 2017 13:46 - CONCLUSION: 1. Circumferential mural thickening of several loops of proximal small bowel in the jejunal region. Differential diagnosis includes enteritis. Can't exclude other etiologies including lymphoma. Recommend followup examination per clinical course. 2. There are numerous hepatic cysts. Small hiatal hernia. Left renal cysts. Mild constipation. 3. Peribronchial thickening in the left lower lobe associated with some distal airway disease. 4. 3.4 cm supraumbilical ventral hernia containing omentum. Alejandro Kemp MD Objective Remarks GENERAL: Well-developed well-nourished. In no acute distress. SKIN: Warm and dry. No lesions noted. HEENT: Normocephalic. Pupils equal and round. Mucous membranes pink and moist. CARDIOVASCULAR: Regular rate and rhythm. No murmur appreciated. RESPIRATORY: No accessory muscle use. Clear to auscultation. Breath sounds equal bilaterally. GASTROINTESTINAL: Abdomen soft, non-tender, nondistended. Bowel sounds x4. MUSCULOSKELETAL: No obvious deformities. No clubbing or cyanosis. No edema. NEUROLOGICAL: Awake and alert. No focal neurological deficits. Moves upper and lower extremities spontaneously. Normal speech. PSYCHIATRIC: Appropriate mood and affect; insight and judgment normal. A/P Assessment and Plan 76-year-old female with: Abdominal hernia with transient epigastric pain: Abdominal CT did show a 3.4 cm supraumbilical ventral hernia containing omentum. Suspect symptoms related to ventral hernia which spontaneously resolved. Afebrile with no leukocytosis. Laboratory evaluation is essentially unremarkable. The patient was evaluated by general surgery who recommended advancing diet as tolerated and outpatient follow-up for possible elective hernia repair. Tolerating oral intake, DC IVF, advance diet. Encouraged ambulation. No heavy lifting. ED return instruction provided. COPD: Chronic, stable. Continue home Symbicort. Nebs as needed. DVT prophylaxis: SCDs Discharge Planning Discharge planning for later today if patient remains stable. Discharge patient to home Condition on discharge: Improved Diet as tolerated Regular activity. No heavy lifting or strenuous activity. Rx written: None Follow-up with primary care physician and general surgery Davi Kevin February 03, 2017 08:38
[2017-02-03] MEDS: DOCUSATE SODIUM 50 MG/SENNA 8.6 MG TAB PO SCH (08:52)
[2017-02-03 09:02] LABS: AUTOMATED NEUTROPHIL # 4.1 TH/MM3 (1.8-7.7); BASOPHIL % 0.3 % (0.0-2.0); EOSINOPHIL # 0.2 TH/MM3 (0-0.4); HEMO FLAGS DIFF FINAL; LYMPH % 11.1 % (9.0-44.0); LYMPHOCYTE # 0.6 TH/MM3 (1.0-4.8); MEAN CELL VOLUME 88.8 FL (80.0-100.0); MEAN CORPUSCULAR HEMOGLOBIN 29.6 PG (27.0-34.0); MEAN CORPUSCULAR HGB CONC 33.4 % (32.0-36.0); MONO % 8.5 % (0.0-8.0); NEUT % 76.1 % (16.0-70.0); PLATELET COUNT 186 TH/MM3 (150-450); RED CELL DISTRIBUTION WIDTH 13.2 % (11.6-17.2); WHITE BLOOD COUNT 5.3 TH/MM3 (4.0-11.0)
[2017-02-03 10:07] LABS: ALKALINE PHOSPHATASE 52 U/L (45-117); ALT (GPT) 28 U/L (10-53); ANION GAP 8 MEQ/L (5-15); AST (GOT) 20 U/L (15-37); BICARBONATE 27.9 MEQ/L (21.0-32.0); BLOOD UREA NITROGEN 10 MG/DL (7-18); CHLORIDE 104 MEQ/L (98-107); GLOMERULAR FILTRATION RATE 106 ML/MIN (>89); SODIUM (NA) 140 MEQ/L (136-145); TOTAL BILIRUBIN ADULT 0.6 MG/DL (0.2-1.0)
--- NOTE | 2017-02-03 16:42 | EKG ---
Date Performed: 02/02/2017 Time Performed: 11:29:52 PTAGE: 76 years EKG: Sinus rhythm Compared to prior tracing no significant change NORMAL ECG PREVIOUS TRACING : 09/21/2016 09.58 DOCTOR: Greg Mathews Interpretating Date/Time 02/03/2017 16:41:41
== END 2017-02-03 11:14 | disposition home or self-care (01) ==
LOC: NEPC 11:22 → NEDA 14:47 → NEPHCDU 16:10
PROVIDERS: ADMIT Internal Medicine; ATTEND Internal Medicine
DX: K43.6 Other and unspecified ventral hernia with obstruction, without gangrene (principal); K76.89 Other specified diseases of liver; J44.9 Chronic obstructive pulmonary disease, unspecified; Z79.82 Long term (current) use of aspirin; Z88.6 Allergy status to analgesic agent; Z88.5 Allergy status to narcotic agent
CPT/HCPCS: 74177; 80053; 83605; 83690; 85025; 85610; 85730; 93005; 96361; 96374; 96375; 99285; G0378; J1170; J2250; J2405; J7030; Q9967

== ENCOUNTER 2017-04-12 14:19 | Inpatient (IN) | payer MEDICARE, OTHER ==
[~2017-04-12] VITALS: Ht 167.6 cm; Wt 81.1 kg
[~2017-04-12 14:19] MED LIST changes: +ASPI-110 PO; -ASPI1TAB69 PO; +BETA1TAB5 PO; -BOSW5TAB PO; -CALTTAB PO; +CALTTAB6 PO; +CETI10 PO; -IBUP200T2 PO; +NAPR220C22 PO; -NIAC500C PO; -VISICAP PO; -ZYRT10CA PO
[2017-04-16] MEDS ORDERED: BOSW5TAB PO (08:57)
--- NOTE | 2017-04-17 19:28 | MH ---
cc: MICHELLE HERCULES DATE OF ADMISSION 04/25/2017 ADMISSION DIAGNOSIS 1. Osteoarthritis of the right knee with a history of a complex tear of the medial meniscus of the right knee 2. Effusion right knee 3. Synovitis right knee 4. Popliteal cyst right knee 5. Pain of the right knee 6. Comorbidities including asthma, elevated cholesterol and varicose veins HISTORY OF PRESENT ILNESS The patient is a 76-year-old white female who has experienced almost a one-year history of pain involving her right knee. She had experienced the onset of her symptoms secondary to routine walking activities without any direct injury to the knee occurring. She had conformed to conservative management in the past as well as being evaluated by her primary care physician who treated her with cortisone injections that did not prove to be of any appreciable benefit. She had also been prescribed additional medication for pain as well as taking Advil with minimal benefit. A subsequent MRI scan of her right knee identified a large complex tear of the medial meniscus involving the posterior horn with extrusion of the body segment. There was additional osteoarthritic findings about the medial compartment and patellofemoral joint and associated effusion with moderately severe synovitis and a large popliteal cyst. The patient later underwent orthopedic evaluation that subsequently resulted in her undergoing arthroscopic surgery in September of this year. At that time, the patient underwent a partial medial meniscectomy as well as a chondroplasty of the patellofemoral joint. Postoperatively, she was followed on an outpatient basis and during that time did note some lingering soreness about her right knee while she was continuing to conform to her daily routine which included walking, exercise activities and taking Aleve for pain management. Unfortunately, her symptoms became more pronounced with the passage of time that began to limit all ambulatory activities being associated with an intermittent giving-away sensation for which the patient was requiring use of a cane as an ambulatory aid. She had fallen on at least one occasion but was able to arise independently thereafter. She had been seen more recently by her primary care physician at which time she indicated her ongoing symptoms and was encouraged to return to the office for further orthopedic disposition. Subsequent x-ray studies revealed obvious degenerative changes with pronounced narrowing throughout the medial compartment and suspicion for an osteochondral defect of the medial tibial plateau. There was secondary involvement of the patellofemoral articulation. Findings and treatment options were reviewed with the patient at that time. The pros and cons of continuing with conservative management versus operative intervention that would involve a total knee arthroplasty were outlined in detail. Emphasis was made regarding the fact that the decision to proceed with surgery would be left entirely to the patient's discretion. The patient returned to the office thereafter indicating that her symptoms had progressed to a point in time where she was having to modify all activities of daily living as well as being compromised with all associated weight bearing activities and was unable to appreciate any improvement of her symptoms with continued use of anti-inflammatory medication. Given the progressive nature of her pain and associated incapacitation, she expressed her desire to proceed with surgery as had previously been discussed and, in compliance with her wishes, she is currently being admitted in order that total knee arthroplasty be accomplished. PAST MEDICAL HISTORY, HOSPITALIZATIONS AND SURGERIES 1. Varicose vein stripping of her left lower extremity 2. Partial hysterectomy, 3. Colonoscopy. 4. Arthroscopic surgery as described 5. Recent medical management for abdominal pain that subsequently resulted in the patient being diagnosed as having a hernia that apparently did not require surgical repair. Her medical illnesses include asthma and elevated cholesterol. MEDICATIONS Current 1. Advair 100-50 twice daily 2. Montelukast 10 mg daily. 3. Proventil p.r.n. 4. Lovasa 4 capsules daily. 5. Aspirin 81 mg tablet daily 6. Ostial Bioflex daily. 7. Caltrate with D3 3 times daily 8. Vision multi___ one daily. 9. Zyrtec daily. ALLERGIES CODEINE - CAUSED NAUSEA AND VOMITING TYENOL - ASSOCIATED WITH ITCHING. REVIEW OF SYSTEMS She wears glasses. There has been history of migraine headaches, subsequent resolved. No seizure or syncope. No sinus congestion or epistaxis. Diminished auditory acuity for which hearing aids are available but not utilized. No tinnitus. No bleeding gums or dysphagia. No cough, shortness of breath or tuberculosis. There has been a positive history of pneumonia. No angina or heart disease. Appetite is good, bowel movements are regular. No hepatitis, gallbladder disease, ulcers or hemorrhoids. No urinary tract infection. No kidney stones. History of a fracture of the left ring finger and right second toe treated non-operatively and previous psychiatric intervention for counseling as related to a divorce. Her remaining review of systems is unremarkable and noncontributory. FAMILY HISTORY The patient has been for over 20 years. She has two sons and one daughter. Her daughter at 47 years of age with a history of colorectal cancer. Her son has undergone previous cardiac surgery. Her family history is positive for lung cancer and heart disease. SOCIAL HISTORY The patient completed the equivalent of two years of college education while she was living in [place]. 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 She denies active use of tobacco and ethanol. PHYSICAL EXAMINATION Height 5 feet 6 inches, weight 169 pounds. An alert, oriented and responsive 76-year-old white female who sits quietly upon the examination table with no apparent distress. HEENT: Pupils are equally round and reactive to light. Extraocular movements full. Sclerae clear. External nares clear. External auditory canals clear. Semi-edentulous in the mandibular distribution. Mucous membranes pink and moist. Pharynx clear. NECK: Supple. Active mobility with no associated pain. Carotid pulse bilaterally. Trachea midline. Thyroid without enlargement. LUNGS: Clear to auscultation and percussion. No CVA tenderness. No discomfort throughout the dorsal lumbar spine. HEART: Regular rhythm. No murmur or gallop. ABDOMEN: Soft, nontender. Bowel sounds present. PELVIC: Per primary care physician. EXTREMITIES: Right knee - There is a fullness about the knee consistent with a limited effusion. Medial joint line tenderness without palpable deformity. Apprehension and compression sign negative. Limited mobility in the 100 degrees of flexion with pain at the extreme of motion. No collateral ligamentous instability. Fantasma test and drawer sign negative. Pivot shift and Pieter sign positive for medial compartment pain. Straight-leg raising negative at 80 degrees. Satisfactory mobility of the right hip with no associated pain. Mild antalgic gait. NEUROLOGIC: Cranial nerves II-XII grossly intact excluding diminished auditory acuity. IMPRESSION 1. Osteoarthritis right knee 2. Complex tear medial meniscus right knee 3. Effusion right knee 4. Synovitis right knee 5. Popliteal cyst right knee 6. Pain right knee 7. Comorbidities including asthma, elevated cholesterol and varicose veins PLAN Right total knee arthroplasty. The nature of the planned surgical procedure, the potential complications and risks associated, the expectations of surgery and the consent form have been thoroughly reviewed with the patient prior to her admission to the hospital. She has indicated her full understanding regarding all of the above and given consent to proceed with treatment as outlined. Medical evaluation and clearance for surgery will be completed by her primary care physician, Dr. Banks. MD KATY Panchal/ /5:05 PM /7:01 PM
[2017-04-25 06:45] VITALS: BP 133/68; PULSE 70; RESP 18; TEMP 98; O2SAT 98
[2017-04-25] MEDS ORDERED: TRANEXAMIC ACID 1 GM PRIOR TO PROCEDURE IV SCH ×2 (07:30)
[2017-04-25] MEDS ORDERED: METOPROLOL TARTRATE 25 MG TAB PO PRN (07:30)
[2017-04-25] MEDS ORDERED: CHLORHEXIDINE GLUCONATE 2 % 1 PACK (2 CLOTHS) TOPICAL PRN (07:30)
[2017-04-25] MEDS ORDERED: POVIDONE IODINE 7.5% SCRUB 118 ML BOTTLE TOPICAL SCH (07:30)
[2017-04-25] MEDS ORDERED: LACTATED RINGER'S 1000 ML IV PRN (07:30)
[2017-04-25] MEDS ORDERED: POVIDONE IODINE 5% (ANTISEPSIS KIT) 4 APPLICATIONS EACH NARE PRN (07:30)
[2017-04-25] MEDS ORDERED: TRANEXAMIC ACID 1 GM POST-OP IV SCH ×2 (07:30)
[2017-04-25] MEDS ORDERED: ceFAZolin 2 GM PREMIX 50 ML IV SCH (07:30)
[2017-04-25] MEDS ORDERED: SODIUM CHLORID 0.9% 500 ML IV PRN (07:30)
[2017-04-25] MEDS ORDERED: INSULIN HUMAN REGULAR 1,000 UNITS/10 ML VIAL SQ PRN (07:30)
[2017-04-25] MEDS ORDERED: ceFAZolin INJ 1,000 MG VIAL ONE (09:34)
[2017-04-25] MEDS ORDERED: BUPIVACAINE HCL PF 0.5% 30 ML VIAL NERV BLOCK ONE (09:42)
[2017-04-25] MEDS ORDERED: DEXAMETHASONE SOD PHOS PF 10 MG/ML VIAL IV ONE (09:42)
[2017-04-25] MEDS ORDERED: MIDAZOLAM HCL 2 MG/2 ML VIAL ONE (09:43)
[2017-04-25] MEDS ORDERED: DEXAMETHASONE SOD PHOS 4 MG/ML VIAL ONE (09:43)
[2017-04-25] MEDS ORDERED: PHENYLEPH/NS 1000 MCG/10 ML SYR IV ONE (12:00)
[2017-04-25] MEDS ORDERED: ONDANSETRON HCL 4 MG/2 ML VIAL IV PUSH ONE (12:00)
[2017-04-25] MEDS ORDERED: PROPOFOL 200 MG/20 ML AMP IV ONE (12:00)
[2017-04-25] MEDS ORDERED: DO NOT ADM ANY ANTICOAGULANT DRUGS PRN (12:23)
[2017-04-25] MEDS ORDERED: *morphine SULFATE 8 MG/ML PERIprocedure ONLY ONE ×2 (12:35→12:50)
[2017-04-25] MEDS ORDERED: NALOXONE HCL 0.4 MG/ML AMP IV PRN (12:45)
[2017-04-25] MEDS ORDERED: traMADol HCL 50 MG TAB PO PRN (12:45)
[2017-04-25] MEDS ORDERED: HYDROmorphone HCL 4 MG TAB PO PRN (12:45)
[2017-04-25] MEDS ORDERED: Post-op Orders (for Pharmacy) MISC XX ONE (12:45)
[2017-04-25] MEDS ORDERED: TRANEXAMIC ACID INJ 1,000 MG in SODIUM CHLORIDE 0.9% INJ 100 ML IV SCH (12:45)
[2017-04-25] MEDS ORDERED: MISCELLANEOUS PHARMACY INFORMATION XX ONE (12:45)
[2017-04-25] MEDS ORDERED: SODIUM CHLORIDE 0.9% FLUSH 5 ML FLUSH IVF PRN (12:45)
[2017-04-25] MEDS ORDERED: ZOLPIDEM TARTRATE 5 MG TAB PO PRN (12:45)
[2017-04-25] MEDS ORDERED: diphenhydrAMINE HCL 25 MG CAP PO PRN (12:45)
--- NOTE | 2017-04-25 13:14 | RADRPT ---
EXAM DATE/TIME: 04/25/2017 12:42 [facility] COMPARISON: No previous studies available for comparison. INDICATIONS : Post-op total right knee arthroplasty. MEDICAL HISTORY : None. SURGICAL HISTORY : Right knee arthroscopy. ENCOUNTER: Initial ACUITY: 1 day PAIN SCORE: 5/10 LOCATION: Right knee. FINDINGS: AP and lateral views of the knee following arthroplasty reveals a prosthesis in anatomic alignment. F racture is not appreciated. Surgical drain is evident CONCLUSION: Status post total knee arthroplasty. Kory Sims MD FACR on April 25, 2017 at 13:12 Board Certified Radiologist. This report was verified electronically.
[2017-04-25] MEDS ORDERED: MORPHINE SULFATE 30 MG/30 ML PCA IV SCH (13:30)
[2017-04-25] MEDS ORDERED: ALBUTEROL SULFATE 90 MCG/ACT HFA 18 GM INHALER INH PRN (13:45)
[2017-04-25] MEDS: DEXT 5%-NACL 0.45% 1000 ML INJ 1,000 ML IV SCH ×2 (14:00→23:42)
--- NOTE | 2017-04-25 15:41 | PD.CONS ---
HPI Service [facility] Consult Requested By Dr. Tobias Leyva Reason for Consult Medical management Primary Care Physician Carolina Banks MD Diagnoses: History of Present Illness Written by Umm Vo PA-C acting as scribe for Dr. Acuna on 04/25/17 at 15:23. This is a 76-year-old female presenting with chronic right knee pain affecting her activities of daily living. Patient has osteoarthritis and failed attempts at outpatient treatment and underwent a right total knee replacement performed by Dr. Tobias Washington who requested consultation to evaluate and manage multiple medical problems. Anesthesia records were reviewed. Patient is hemodynamically stable. Preop chest x-ray showed hyperinflation. Patient has past medical history significant for asthma but denies any previous hospitalization for exacerbations. She also has past medical history of dyslipidemia which is well controlled per patient report. Presently patient is lying in PACU. She states she is comfortable and pain is well-controlled. Patient had spinal as well as a local nerve block. All other systems reviewed and are negative. Review of Systems Except as stated in HPI: all other systems reviewed are Neg Past Family Social History Allergies: Coded Allergies: acetaminophen (Unverified Allergy, Severe, Itching, 04/24/17) codeine (Unverified Adverse Reaction, Severe, Nausea/Vomiting, 04/24/17) Past Medical History Asthma, controlled HLD, controlled Past Surgical History Varicose vein surgery left lower extremity Partial hysterectomy Right knee arthroscopy Reported Medications Advair 100/50 twice daily Singulair 10 mg daily Proventil as needed Lovasa 4 capsules daily Aspirin 81 mg daily Osteo Bi-Flex daily Caltrate with D3 daily Zyrtec daily Active Ordered Medications Current Medications Medications (Trade) Dose Ordered Sig/Lyly Route Start Time Stop Time Status Last Admin Povidone Iodine 1 applic 1 applic ONCE TOPICAL 04/25/17 07:30 04/28/17 07:29 04/25/17 07:30 Tranexamic Acid 1000 mg/Sodium Chloride 110 ml @ 220 mls/hr ONCE IV 04/25/17 07:30 04/26/17 07:29 04/25/17 08:13 Tranexamic Acid 1000 mg/Sodium Chloride 110 ml @ 220 mls/hr ONCE IV 04/25/17 07:30 04/26/17 07:29 04/25/17 11:25 Lactated Ringer's 1,000 ml @ 30 mls/hr Q24H PRN IV 04/25/17 07:30 04/28/17 07:29 04/25/17 07:45 (NS 500 ml Inj) 500 ml @ 30 mls/hr [id number] PRN IV 04/25/17 07:30 04/28/17 07:29 (NS Flush) 2 ml UNSCH PRN IVF 04/25/17 12:45 IV Flush 2 ml 2 ml BID IVF 04/25/17 21:00 (Ancef Inj/NS Inj) 100 ml @ 200 mls/hr Q6H IV 04/25/17 17:00 04/26/17 05:29 (Xarelto) 10 mg Q24H PO 04/26/17 11:00 (Ultram) 50 mg Q4H PRN PO 04/25/17 12:45 (Ultram) 100 mg Q4H PRN PO 04/25/17 12:45 (Zofran Inj) 4 mg Q6H PRN IVP 04/25/17 12:45 (Colace) 100 mg BID PRN PO 04/25/17 12:45 (Ambien) 5 mg HS PRN PO 04/25/17 12:45 (Narcan Inj) 0.4 mg UNSCH PRN IV 04/25/17 12:45 (Benadryl) 25 mg Q6H PRN PO 04/25/17 12:45 (Morphine 1 Mg/ ml [employer]) 30 mg UNSCH IV 04/25/17 13:30 04/25/17 14:22 [employer] Dosage Infused (Pha) 1 1 Q8HR .XX 04/25/17 14:00 (D5W-1/2 NS 1000 ml Inj) 1,000 ml @ 125 mls/hr Q8H IV 04/25/17 14:00 04/25/17 14:00 (Dilaudid) 4 mg Q4H PRN PO 04/25/17 12:45 UNV Miscellaneous Information ALL NURSING DEPARTME... UNSCH PRN .XX 04/25/17 12:23 04/26/17 12:22 (Ventolin Hfa Inh) 2 puff Q4HR PRN INH 04/25/17 13:45 (ZyrTEC) 10 mg DAILY PO 04/26/17 09:00 (Singulair) 10 mg HS PO 04/25/17 21:00 (Oscal-D 250-125) 500 mg TID PO 04/25/17 18:00 (Symbicort 80-4.5 Mcg Inh) 2 puff BID INH 04/25/17 21:00 Family History Family medical history significant for colon cancer, lung cancer and heart disease Social History She denies any tobacco use or alcohol consumption. Physical Exam Vital Signs Vital Signs Date Time Temp Pulse Resp B/P Pulse Ox O2 Delivery O2 Flow Rate FiO2 04/25/17 14:22 15 04/25/17 13:45 60 16 115/56 97 Nasal Cannula 3 04/25/17 13:30 57 16 112/58 93 Nasal Cannula 3 04/25/17 13:15 62 17 125/57 95 Nasal Cannula 3 04/25/17 13:00 60 15 132/61 95 Nasal Cannula 3 04/25/17 12:45 61 15 152/60 95 Nasal Cannula 3 04/25/17 12:30 67 18 159/67 95 Nasal Cannula 3 04/25/17 12:24 97.5 66 16 128/86 97 Nasal Cannula 3 04/25/17 06:45 98.0 70 18 133/68 98 Physical Exam GENERAL: This is a well-nourished, well-developed patient, in no apparent distress. Awake and alert. Lying in hospital bed in PACU. SKIN: No rashes, ecchymoses or lesions. Cool and dry. HEAD: Atraumatic. Normocephalic. No temporal or scalp tenderness. EYES: Pupils equal round and reactive. Extraocular motions intact. No scleral icterus. No injection or drainage. ENT: Nose without bleeding or purulent drainage. Throat without erythema, tonsillar hypertrophy or exudate. Uvula midline. Airway patent. NECK: Trachea midline. No lymphadenopathy. Supple, nontender, no meningeal signs. CARDIOVASCULAR: Regular rate and rhythm without murmurs, gallops, or rubs. RESPIRATORY: Clear to auscultation. Breath sounds equal bilaterally. No wheezes , rales, or rhonchi. GASTROINTESTINAL: Abdomen soft, non-tender, nondistended. No hepato-splenomegaly , or palpable masses. No guarding. MUSCULOSKELETAL: Extremities without clubbing, cyanosis, or edema. Right lower extremity with postop dressing that is clean, dry and intact. Drain for autotransfusion system noted. NEUROLOGICAL: Awake and alert. Motor and sensory function grossly intact in bilateral lower extremities. Normal speech. Laboratory Laboratory Tests Test 04/25/17 07:50 Blood Type O POSITIVE Antibody Screen NEGATIVE Blood Bank Comment Imaging Last Impressions Knee X-Ray 04/25/17 1242 Signed Impressions: Service Date/Time: Tuesday, April 25, 2017 12:42 - CONCLUSION: Status post total knee arthroplasty. Kory Sims MD Assessment and Plan Assessment and Plan 76-year-old female presenting with chronic right knee pain affecting her activities of daily living. Patient has osteoarthritis and failed attempts at outpatient treatment and underwent a right total knee replacement performed by Dr. Tobias Washington who requested consultation to evaluate and manage multiple medical problems. Anesthesia records were reviewed. Patient is hemodynamically stable. Patient is stable and we will continue postoperative care with physical therapy, wound care, incentive spirometry, DVT prophylaxis with Xarelto and pain management with tramadol and [employer] morphine. Osteoarthritis right knee failed outpatient treatment status post right total knee replacement Pain management with Tramadol and [employer] Morphine with Dilaudid as needed for breakthrough pain PT eval/tx Asthma, controlled, not in exacerbation Preop Chest x-ray personally reviewed revealing hyperinflation, read as emphysematous changes Resume patient's home Symbicort twice a day and Ventolin inhaler as needed Resume patient's home dose of Singulair 10 mg and Zyrtec 10mg daily Monitor respiratory status HLD Controlled per patient's report Resume patients Lovaza 4gm po daily DVT prophylaxis Xarelto 10 mg daily Discussed Condition With Patient and nursing staff This note was transcribed by natacha Vo PA-C. I, Dr. Aldo Acuna personally performed the history, physical exam, and medical decision making; and confirmed the accuracy of the information in the transcribed note. Authenticated by Dr. Aldo Acuna on 04/25/17 at 15:26 Umm Vo Apr 25, 2017 15:41 Aldo Acuna MD Apr 25, 2017 17:39
[2017-04-25] MEDS ORDERED: *ONDANSETRON 4 MG VIAL PERIprocedural Use ONLY ONE ×2 (15:55→19:13)
[2017-04-25] MEDS: CALCIUM/VITAMIN D 250 MG/125 U TAB PO SCH (18:00)
[2017-04-25 19:00] VITALS: BP 142/59; PULSE 58; RESP 16; TEMP 96.9; O2SAT 96
[2017-04-25] MEDS: SODIUM CHLORIDE 0.9% FLUSH 5 ML FLUSH IVF SCH (20:35)
[2017-04-25] MEDS: BUDESONIDE-FORMOTEROL 80/4.5 MCG INHALER INH SCH (20:35)
[2017-04-25] MEDS: PCA - TOTAL MG MORPHINE DELIVERED PER SHIFT SCH (20:35)
[2017-04-25] MEDS: MONTELUKAST SODIUM 10 MG TAB PO SCH (20:35)
[2017-04-25] MEDS: ONDANSETRON HCL 4 MG/2 ML VIAL IVP PRN (20:36)
[2017-04-26] VITALS (7 sets, daily range): BP systolic 101–137; BP diastolic 48–57; PULSE 58–83; RESP 16–18; TEMP 96–97; O2SAT 95–99
[2017-04-26] MEDS: PCA - TOTAL MG MORPHINE DELIVERED PER SHIFT SCH ×3 (05:12→22:58)
[2017-04-26 05:53] LABS: HEMATOCRIT 35.4 % (35.0-46.0); REVIEW FLAG FINAL
--- NOTE | 2017-04-26 05:59 | MP ---
cc: MICHELLE HERCULES DATE OF SURGERY 25 April 2017 PREOPERATIVE DIAGNOSIS Osteoarthritis of the right knee with a complex tear of the medial meniscus, effusion right knee, synovitis right knee, popliteal cyst right knee, pain right knee. POSTOPERATIVE DIAGNOSIS Osteoarthritis of the right knee with a complex tear of the medial meniscus, effusion right knee, synovitis right knee, popliteal cyst right knee, pain right knee. PROCEDURE Right total knee arthroplasty. SURGEON MD Gordon ANESTHESIA Spinal. INDICATIONS A 76-year-old white female with a one-year history of right knee pain, her onset being related to routine walking activities without any direct injury to the knee occurring. She had initially conformed to conservative management in the past while being evaluated by her primary care physician who treated her with cortisone injections that did not prove to be of any appreciable benefit. She had also been prescribed additional medication for pain as well as taking Advil with minimal benefit. A subsequent MRI scan of her right knee identified a large complex tear of the medial meniscus involving the posterior horn with extrusion of the body segment. There was additional osteoarthritic findings about the medial compartment, the patellofemoral joint associated with an effusion and a moderately severe synovitis and large popliteal cyst. The patient had subsequently undergone orthopedic evaluation that resulted in arthroscopic surgery having been completed in September of this year. At that time a partial medial meniscectomy with chondroplasty of the patellofemoral joint was completed. Postoperatively the patient was followed on an outpatient basis during which time she did experience a lingering soreness about her right knee while she continued to conform to her daily routine which included walking, exercise activities and taking Aleve for pain management. Unfortunately, her symptoms became more pronounced with the passage of time that began to limit all ambulatory activities and associated with an intermittent giving-way sensation for which the patient was requiring use of a cane as an ambulatory aid. She had fallen on at least one occasion but was able to rise independently thereafter. She had undergone a more recent evaluation with her primary care physician who had noted her ongoing symptoms and encouraged the patient to return for further orthopedic disposition. Subsequent x-ray studies revealed obvious degenerative changes with pronounced narrowing throughout the medial compartment and suspicion for an osteochondral defect of the medial tibial plateau. There was secondary involvement of the patellofemoral articulation. Findings and treatment options were reviewed with the patient at that time. The pros and cons of continuing with conservative management versus operative intervention that would involve a total knee arthroplasty were outlined. Emphasis was made regarding the fact that the decision to proceed with surgery would be left entirely to the patient's discretion. The patient returned to the office in follow-up disposition indicating that her symptoms had progressed to a point in time where she was having to modify all activities of daily living as well as being compromised with any weightbearing stress to her knee. Given her ongoing symptoms and her failure to respond to continued use of anti-inflammatory medication, the patient expressed her desire to proceed with additional intervention. In compliance with her wishes she is currently being admitted in order that total knee arthroplasty be accomplished. FORMAT Following the induction of satisfactory spinal anesthesia as completed per the Department of Anesthesia, a tourniquet was established around the proximal portion of the right lower extremity. The extremity proper was isolated with a U-drape, thereafter being prepped with Betadine solution and draped into a sterile field in the routine manner. Prior to initiation of the actual procedure, the standard time-out protocol was completed. All parameters were appropriately addressed and confirmed by operating room personnel. The extremity was elevated for approximately 1 minute and thereafter the tourniquet inflated to 250 mmHg pressure. A sharp skin incision was initiated midline along the anterior aspect of the knee and developed through underlying subcutaneous tissue with hemostasis maintained by electrocautery. By deepening dissection the anterior capsule was exposed, a medial capsulotomy completed and the patella subluxed in a lateral orientation. Examination of the joint space revealed severe degenerative changes including the patellofemoral articulation where there was complete erosion of articular cartilage and underlying subchondral bone exposed, additional degenerative involvement throughout the medial compartment. The articular surface of the patella was resected. The three-holed guide was utilized for establishing post holes. Residual medial and lateral meniscus structures as well as the anterior cruciate ligament were sharply excised. A centering hole was placed in the distal aspect of the femur allowing positioning of the intramedullary guide. The distal femoral cutting jig was attached and the distal femur resected. AP measurement noted 70-mm sizing to be satisfactory. The matching cutting block was positioned. Anterior, posterior and chamfer cuts were completed. The tibial plateau was thereafter subluxed in an anterior orientation allowing positioning of the extramedullary guide. The tibial plateau was resected and measured with 71-mm sizing determined to be appropriate. The trial reduction followed utilizing a 70-mm anatomic femoral component, a 71-mm tibial base with both 10 and 12-mm bearing inserts trialed. The 12-mm thickness was determined to be the more favorable fit. The knee was readily brought to full extension. There was no laxity to varus-valgus stress at both 0 and 90 degrees flexed posture. Orientation was confirmed as appropriate with measurement of the pelvic guide through the mechanical axis of the knee. Trial reduction followed utilizing a 31-mm standard patellar button. Once again good tracking noted with no tendency toward subluxation. All trial components were removed. The remaining portion of the proximal tibia was prepared for insertion of the permanent component. The joint space was thoroughly lavaged with pulsating antibiotic solution, hemostasis being maintained by electrocautery. An autogenous bone plug was inserted into the distal femoral guide hole and thereafter a preparation of Palacos bone cement was utilized in inserting knee components in sequential fashion which included a 71-mm fixed cruciate tibial plate to which a 12-mm Vanguard tibial bearing insert was secured with locking hurtado. A 70-mm Vanguard femoral component was firmly seated onto the distal femur, excess cement being removed. The knee was brought to full extension and thereafter the 31-mm standard three post All-Poly patellar button was attached and maintained in place with patellar clamp while cement hardening was completed. Final range of motion assessment noted good tracking stability throughout the knee. Irrigation was repeated with hemostasis maintained. An Autovac drain tube was inserted through superior stab wounds. The capsule was repaired with 0 Vicryl suture. The remaining portion of the wound was closed in layers in the routine manner, skin margins being reapproximated with a running subcuticular 3-0 Vicryl suture over which Steri-Strips were applied. Xeroform gauze and a bulky dry sterile dressing were placed. The tourniquet had been deflated after 44 minutes of tourniquet time, the extremity being supported in a canvas knee splint. Anesthesia was discontinued. She was thereafter transferred to a hospital bed and returned to the recovery room in satisfactory condition having tolerated her operative procedure well. Estimated blood loss was less than 100 cc as determined per Anesthesia. All implants were of the [employer] animal caregiver. MD KATY Panchal/ERNESTO /12:30 PM /5:40 AM
[2017-04-26] MEDS: DEXT 5%-NACL 0.45% 1000 ML INJ 1,000 ML IV SCH ×3 (06:00→22:57)
[2017-04-26] MEDS ORDERED: ASPI325T PO (06:23)
[2017-04-26] MEDS ORDERED: ULTR50TA5 PO (06:23)
--- NOTE | 2017-04-26 06:26 | HHI.FF ---
Face to Face Verification Diagnosis: (1) DJD (degenerative joint disease) of knee Physical Therapy Gait training Knee: Total knee, Protocol: Right, Full weight bearing Right LE Weight Bearing: WB as tolerated Right LE Range of Motion: Active ROM Nursing Dressing Changes: Daily dressing change I have seen patient Anca Love on 04/26/17. My clinical findings support the need for the requested home health care services because: Limited ability to care for self High risk of falls I certify that my clinical findings support that this patient is homebound because: Post-op weakness Unsteady gait/balance Unsafe to leave home unassisted Tobias Leyva MD Apr 26, 2017 06:25
[2017-04-26] MEDS ORDERED: WALKER WHEELS/F1 MIS (06:27)
[2017-04-26] MEDS: CALCIUM/VITAMIN D 250 MG/125 U TAB PO SCH ×3 (08:10→17:12)
[2017-04-26] MEDS: DOCUSATE SODIUM 100 MG CAP PO PRN ×2 (08:10→22:48)
[2017-04-26] MEDS: CETIRIZINE HCL 10 MG TAB PO SCH (08:10)
[2017-04-26] MEDS: BUDESONIDE-FORMOTEROL 80/4.5 MCG INHALER INH SCH ×2 (08:15→22:50)
[2017-04-26] MEDS: SODIUM CHLORIDE 0.9% FLUSH 5 ML FLUSH IVF SCH ×2 (08:15→22:48)
[2017-04-26] MEDS ORDERED: OMEGA ACID ETHYL ESTERS PO SCH (09:00)
[2017-04-26] MEDS: ONDANSETRON HCL 4 MG/2 ML VIAL IVP PRN ×2 (10:47→17:25)
[2017-04-26] MEDS ORDERED: RIVAROXABAN 10 MG TAB PO SCH (11:00)
[2017-04-26] MEDS: RIVAROXABAN 10 MG TAB PO SCH (11:35)
--- NOTE | 2017-04-26 12:15 | HHI.PR ---
Subjective Remarks Follow-up on patient status post right total knee replacement. Patient seen and examined today. Patient states she is doing well. She had some nausea yesterday but is feeling much better this morning. She denies any complaints of fever or chills. She denies any chest pain or shortness of breath. Denies any nausea or vomiting at this time. Denies any abdominal pain, diarrhea or dysuria. Objective Vitals Vital Signs Date Time Temp Pulse Resp B/P Pulse Ox O2 Delivery O2 Flow Rate FiO2 04/26/17 11:36 97.0 76 18 107/49 95 04/26/17 08:00 96.2 61 16 108/48 99 04/26/17 04:00 61 16 101/51 96 04/26/17 00:00 96.8 59 17 109/54 96 04/25/17 20:35 15 04/25/17 19:00 96.9 58 16 142/59 96 04/25/17 18:45 97.3 56 17 124/60 93 Nasal Cannula 2 04/25/17 18:15 58 17 111/58 94 Nasal Cannula 2 04/25/17 17:15 62 15 112/56 99 Nasal Cannula 3 04/25/17 16:15 98.1 56 15 108/53 95 Nasal Cannula 3 04/25/17 15:15 66 15 110/56 94 Nasal Cannula 3 04/25/17 14:45 57 16 120/56 96 Nasal Cannula 3 04/25/17 14:22 15 04/25/17 14:15 63 16 115/57 93 Nasal Cannula 3 04/25/17 13:45 60 16 115/56 97 Nasal Cannula 3 04/25/17 13:30 57 16 112/58 93 Nasal Cannula 3 04/25/17 13:15 62 17 125/57 95 Nasal Cannula 3 04/25/17 13:00 60 15 132/61 95 Nasal Cannula 3 04/25/17 12:45 61 15 152/60 95 Nasal Cannula 3 04/25/17 12:30 67 18 159/67 95 Nasal Cannula 3 04/25/17 12:24 97.5 66 16 128/86 97 Nasal Cannula 3 I/O 04/25/17 04/25/17 04/25/17 04/26/17 04/26/17 04/26/17 07:00 15:00 23:00 07:00 15:00 23:00 Intake Total 1500 ml 2115 ml 480 ml 650 ml Output Total 75 ml 60 ml 10 ml 150 ml Balance 1425 ml 2055 ml 470 ml 500 ml Intake Oral 720 ml 480 ml IV Total 1395 ml 650 ml Other 1500 ml Output Urine Total 0 ml 0 ml Stool Total 0 ml Drainage Total 60 ml 10 ml 150 ml Estimated Blood Loss 75 ml # Voids 1 2 # Bowel Movements 0 0 Result Diagram: 04/26/17 0453 Imaging Current Medications Medications (Trade) Dose Ordered Sig/Lyly Route Start Time Stop Time Status Last Admin Povidone Iodine 1 applic 1 applic ONCE TOPICAL 04/25/17 07:30 04/28/17 07:29 04/25/17 07:30 Lactated Ringer's 1,000 ml @ 30 mls/hr Q24H PRN IV 04/25/17 07:30 04/28/17 07:29 04/25/17 07:45 (NS 500 ml Inj) 500 ml @ 30 mls/hr [id number] PRN IV 04/25/17 07:30 04/28/17 07:29 (NS Flush) 2 ml UNSCH PRN IVF 04/25/17 12:45 (NS Flush) 2 ml BID IVF 04/25/17 21:00 (Ultram) 50 mg Q4H PRN PO 04/25/17 12:45 04/26/17 08:10 (Ultram) 100 mg Q4H PRN PO 04/25/17 12:45 (Zofran Inj) 4 mg Q6H PRN IVP 04/25/17 12:45 04/26/17 10:47 (Colace) 100 mg BID PRN PO 04/25/17 12:45 04/26/17 08:10 (Ambien) 5 mg HS PRN PO 04/25/17 12:45 (Narcan Inj) 0.4 mg UNSCH PRN IV 04/25/17 12:45 (Benadryl) 25 mg Q6H PRN PO 04/25/17 12:45 (Morphine 1 Mg/ ml OPTHALMIC TECH) 30 mg UNSCH IV 04/25/17 13:30 04/25/17 14:22 OPTHALMIC TECH Dosage Infused (Pha) 1 1 Q8HR .XX 04/25/17 14:00 04/26/17 11:35 (D5W-1/2 NS 1000 ml Inj) 1,000 ml @ 125 mls/hr Q8H IV 04/25/17 14:00 04/25/17 23:42 (Dilaudid) 4 mg Q4H PRN PO 04/25/17 12:45 Miscellaneous Information ALL NURSING DEPARTME... UNSCH PRN .XX 04/25/17 12:23 04/26/17 12:22 (Ventolin Hfa Inh) 2 puff Q4HR PRN INH 04/25/17 13:45 (ZyrTEC) 10 mg DAILY PO 04/26/17 09:00 04/26/17 08:10 (Singulair) 10 mg HS PO 04/25/17 21:00 04/25/17 20:35 (Oscal-D 250-125) 500 mg TID PO 04/25/17 18:00 04/26/17 11:34 (Symbicort 80-4.5 Mcg Inh) 2 puff BID INH 04/25/17 21:00 04/26/17 08:15 (Xarelto) 10 mg Q24H PO 04/26/17 12:00 04/26/17 11:35 Objective Remarks GENERAL: This is a well-nourished, well-developed patient, in no apparent distress. Awake and alert. Sitting up in hospital bed eating breakfast. SKIN: No rashes, ecchymoses or lesions. Cool and dry. HEAD: Atraumatic. Normocephalic. EYES: Extraocular motions intact. No scleral icterus. No injection or drainage. ENT: Nose without bleeding or purulent drainage. Airway patent. NECK: Trachea midline. Supple. CARDIOVASCULAR: Regular rate and rhythm without murmurs, gallops, or rubs. RESPIRATORY: Clear to auscultation. Breath sounds equal bilaterally. No wheezes , rales, or rhonchi. GASTROINTESTINAL: Abdomen soft, non-tender, nondistended. No hepato-splenomegaly , or palpable masses. No guarding. MUSCULOSKELETAL: Extremities without clubbing, cyanosis, or edema. Right lower extremity with postop dressing that is clean, dry and intact. Drain for autotransfusion system noted. NEUROLOGICAL: Awake and alert. Motor and sensory function grossly intact in bilateral lower extremities. Normal speech. Medications and IVs Current Medications Medications (Trade) Dose Ordered Sig/Lyly Route Start Time Stop Time Status Last Admin Povidone Iodine 1 applic 1 applic ONCE TOPICAL 04/25/17 07:30 04/28/17 07:29 04/25/17 07:30 Lactated Ringer's 1,000 ml @ 30 mls/hr Q24H PRN IV 04/25/17 07:30 04/28/17 07:29 04/25/17 07:45 (NS 500 ml Inj) 500 ml @ 30 mls/hr [id number] PRN IV 04/25/17 07:30 04/28/17 07:29 (NS Flush) 2 ml UNSCH PRN IVF 04/25/17 12:45 (NS Flush) 2 ml BID IVF 04/25/17 21:00 (Ultram) 50 mg Q4H PRN PO 04/25/17 12:45 04/26/17 08:10 (Ultram) 100 mg Q4H PRN PO 04/25/17 12:45 (Zofran Inj) 4 mg Q6H PRN IVP 04/25/17 12:45 04/26/17 10:47 (Colace) 100 mg BID PRN PO 04/25/17 12:45 04/26/17 08:10 (Ambien) 5 mg HS PRN PO 04/25/17 12:45 (Narcan Inj) 0.4 mg UNSCH PRN IV 04/25/17 12:45 (Benadryl) 25 mg Q6H PRN PO 04/25/17 12:45 (Morphine 1 Mg/ ml OPTHALMIC TECH) 30 mg UNSCH IV 04/25/17 13:30 04/25/17 14:22 OPTHALMIC TECH Dosage Infused (Pha) 1 1 Q8HR .XX 04/25/17 14:00 04/26/17 11:35 (D5W-1/2 NS 1000 ml Inj) 1,000 ml @ 125 mls/hr Q8H IV 04/25/17 14:00 04/25/17 23:42 (Dilaudid) 4 mg Q4H PRN PO 04/25/17 12:45 Miscellaneous Information ALL NURSING DEPARTME... UNSCH PRN .XX 04/25/17 12:23 04/26/17 12:22 (Ventolin Hfa Inh) 2 puff Q4HR PRN INH 04/25/17 13:45 (ZyrTEC) 10 mg DAILY PO 04/26/17 09:00 04/26/17 08:10 (Singulair) 10 mg HS PO 04/25/17 21:00 04/25/17 20:35 (Oscal-D 250-125) 500 mg TID PO 04/25/17 18:00 04/26/17 11:34 (Symbicort 80-4.5 Mcg Inh) 2 puff BID INH 04/25/17 21:00 04/26/17 08:15 (Xarelto) 10 mg Q24H PO 04/26/17 12:00 04/26/17 11:35 A/P Assessment and Plan 76-year-old female presenting with chronic right knee pain affecting her activities of daily living. Patient has osteoarthritis and failed attempts at outpatient treatment and underwent a right total knee replacement performed by Dr. Tobias Washington who requested consultation to evaluate and manage multiple medical problems. Anesthesia records were reviewed. Patient is hemodynamically stable. Patient is stable and we will continue postoperative care with physical therapy, wound care, incentive spirometry, DVT prophylaxis with Xarelto and pain management with tramadol and OPTHALMIC TECH morphine. Osteoarthritis right knee failed outpatient treatment status post right total knee replacement Pain management with Tramadol and OPTHALMIC TECH Morphine with Dilaudid as needed for breakthrough pain Continue with PT Postop hemoglobin and hematocrit stable. Monitor chemistries. Asthma, controlled, not in exacerbation Preop Chest x-ray personally reviewed revealing hyperinflation, read as emphysematous changes Continue patient's home Symbicort twice a day and Ventolin inhaler as needed Continue patient's home dose of Singulair 10 mg and Zyrtec 10mg daily Monitor respiratory status HLD Controlled per patient's report Continue patients Lovaza 4gm po daily DVT prophylaxis Xarelto 10 mg daily Discussed with patient and Umm Gary Apr 26, 2017 12:15
[2017-04-26] MEDS: traMADol HCL 50 MG TAB PO PRN ×2 (16:58→22:49)
[2017-04-26] MEDS: MONTELUKAST SODIUM 10 MG TAB PO SCH (22:49)
[2017-04-27 00:13] VITALS: BP 105/46; PULSE 69; RESP 17; TEMP 97.6; O2SAT 96
[2017-04-27] MEDS: traMADol HCL 50 MG TAB PO PRN ×3 (05:56→16:14)
[2017-04-27] MEDS: PCA - TOTAL MG MORPHINE DELIVERED PER SHIFT SCH ×4 (05:58→20:28)
[2017-04-27] MEDS: DEXT 5%-NACL 0.45% 1000 ML INJ 1,000 ML IV SCH ×3 (05:58→20:28)
[2017-04-27] MEDS ORDERED: HOSP BED1 (06:42)
[2017-04-27] MEDS: CALCIUM/VITAMIN D 250 MG/125 U TAB PO SCH ×3 (07:26→16:14)
[2017-04-27] MEDS: CETIRIZINE HCL 10 MG TAB PO SCH (07:26)
[2017-04-27] MEDS: DOCUSATE SODIUM 100 MG CAP PO PRN ×2 (07:26→20:14)
[2017-04-27] MEDS: SODIUM CHLORIDE 0.9% FLUSH 5 ML FLUSH IVF SCH ×2 (07:27→20:13)
[2017-04-27] MEDS: BUDESONIDE-FORMOTEROL 80/4.5 MCG INHALER INH SCH ×2 (07:29→20:14)
[2017-04-27 08:00] VITALS: BP 101/53; PULSE 71; RESP 16; TEMP 96.6; O2SAT 93
[2017-04-27 08:32] LABS: AUTOMATED NEUTROPHIL # 4.3 TH/MM3 (1.8-7.7); BASOPHIL % 0.6 % (0.0-2.0); EOSINOPHIL # 0.1 TH/MM3 (0-0.4); EOSINOPHIL % 1.7 % (0.0-4.0); HEMATOCRIT 33.3 % (35.0-46.0); HEMO FLAGS DIFF FINAL; LYMPHOCYTE # 1.4 TH/MM3 (1.0-4.8); MEAN CELL VOLUME 90.3 FL (80.0-100.0); MEAN CORPUSCULAR HGB CONC 34.3 % (32.0-36.0); MONO % 15.7 % (0.0-8.0); PLATELET COUNT 176 TH/MM3 (150-450); RED BLOOD COUNT 3.69 MIL/MM3 (4.00-5.30); RED CELL DISTRIBUTION WIDTH 13.5 % (11.6-17.2)
[2017-04-27 08:55] LABS: BICARBONATE 30.2 MEQ/L (21.0-32.0); POTASSIUM 3.9 MEQ/L (3.5-5.1)
--- NOTE | 2017-04-27 09:10 | HHI.PR ---
Subjective Remarks Follow-up on patient status post right total knee replacement. Patient seen and examined today. Patient denies any complaints this morning. No N/V. No abdominal pain. Denies any fever or chills. Denies any CP or SOB. Right knee pain well controlled. Per PTs note, patient had an episode of dizziness while walking to the bathroom with near syncope that resolved after few seconds of sitting. Likely vasovagal episode. Patient reports she was able to use the bedside commode this am without any difficulty or recurrence. She has not had a bowel movement since admission. Objective Vitals Vital Signs Date Time Temp Pulse Resp B/P Pulse Ox O2 Delivery O2 Flow Rate FiO2 04/27/17 07:22 Room Air 04/27/17 00:13 97.6 69 17 105/46 96 04/26/17 20:00 97.0 58 16 118/52 97 04/26/17 18:41 Room Air 04/26/17 17:00 96.0 83 16 137/57 96 04/26/17 14:14 95 21 04/26/17 11:36 97.0 76 18 107/49 95 I/O 04/26/17 04/26/17 04/26/17 04/27/17 04/27/17 04/27/17 07:00 15:00 23:00 07:00 15:00 23:00 Intake Total 480 ml 1250 ml 480 ml 480 ml Output Total 10 ml 150 ml 110 ml 30 ml Balance 470 ml 1100 ml 370 ml 450 ml Intake Oral 480 ml 600 ml 480 ml 480 ml IV Total 650 ml Stool Total 0 ml Drainage Total 10 ml 150 ml 110 ml 30 ml # Voids 2 3 2 2 # Bowel Movements 0 0 Result Diagram: 04/27/17 0742 04/27/17 0742 Imaging Last Impressions Knee X-Ray 04/25/17 1242 Signed Impressions: Service Date/Time: Tuesday, April 25, 2017 12:42 - CONCLUSION: Status post total knee arthroplasty. Kory Sims MD Objective Remarks GENERAL: This is a well-nourished, well-developed patient, in no apparent distress. Awake and alert. Sitting up in hospital bed. SKIN: No rashes, ecchymoses or lesions. Cool and dry. HEAD: Atraumatic. Normocephalic. EYES: Extraocular motions intact. No scleral icterus. No injection or drainage. ENT: Nose without bleeding or purulent drainage. Airway patent. NECK: Trachea midline. Supple. CARDIOVASCULAR: Regular rate and rhythm without murmurs, gallops, or rubs. RESPIRATORY: Clear to auscultation. Breath sounds equal bilaterally. No wheezes , rales, or rhonchi. GASTROINTESTINAL: Abdomen soft, non-tender, nondistended. No hepato-splenomegaly , or palpable masses. No guarding. MUSCULOSKELETAL: Extremities without clubbing, cyanosis, or edema. Right lower extremity with postop dressing that is clean, dry and intact. Able to move toes. Sensation grossly intact distally. NEUROLOGICAL: Awake and alert. Motor and sensory function grossly intact in bilateral lower extremities. Normal speech. Medications and IVs Current Medications Medications (Trade) Dose Ordered Sig/Lyly Route Start Time Stop Time Status Last Admin Povidone Iodine 1 applic 1 applic ONCE TOPICAL 04/25/17 07:30 04/28/17 07:29 04/25/17 07:30 Lactated Ringer's 1,000 ml @ 30 mls/hr Q24H PRN IV 04/25/17 07:30 04/28/17 07:29 04/25/17 07:45 (NS 500 ml Inj) 500 ml @ 30 mls/hr [id number] PRN IV 04/25/17 07:30 04/28/17 07:29 (NS Flush) 2 ml UNSCH PRN IVF 04/25/17 12:45 (NS Flush) 2 ml BID IVF 04/25/17 21:00 04/27/17 07:27 (Ultram) 50 mg Q4H PRN PO 04/25/17 12:45 04/26/17 08:10 (Ultram) 100 mg Q4H PRN PO 04/25/17 12:45 04/27/17 05:56 (Zofran Inj) 4 mg Q6H PRN IVP 04/25/17 12:45 04/26/17 17:25 (Colace) 100 mg BID PRN PO 04/25/17 12:45 04/27/17 07:26 (Ambien) 5 mg HS PRN PO 04/25/17 12:45 (Narcan Inj) 0.4 mg UNSCH PRN IV 04/25/17 12:45 (Benadryl) 25 mg Q6H PRN PO 04/25/17 12:45 (Morphine 1 Mg/ ml RATCHET SETTER) 30 mg UNSCH IV 04/25/17 13:30 04/25/17 14:22 RATCHET SETTER Dosage Infused (Pha) 1 1 Q8HR .XX 04/25/17 14:00 04/26/17 11:35 (D5W-1/2 NS 1000 ml Inj) 1,000 ml @ 125 mls/hr Q8H IV 04/25/17 14:00 04/25/17 23:42 (Dilaudid) 4 mg Q4H PRN PO 04/25/17 12:45 (Ventolin Hfa Inh) 2 puff Q4HR PRN INH 04/25/17 13:45 (ZyrTEC) 10 mg DAILY PO 04/26/17 09:00 04/27/17 07:26 (Singulair) 10 mg HS PO 04/25/17 21:00 04/26/17 22:49 (Oscal-D 250-125) 500 mg TID PO 04/25/17 18:00 04/27/17 07:26 (Symbicort 80-4.5 Mcg Inh) 2 puff BID INH 04/25/17 21:00 04/27/17 07:29 (Xarelto) 10 mg Q24H PO 04/26/17 12:00 04/26/17 11:35 A/P Assessment and Plan 76-year-old female presenting with chronic right knee pain affecting her activities of daily living. Patient has osteoarthritis and failed attempts at outpatient treatment and underwent a right total knee replacement performed by Dr. Tobias Washington who requested consultation to evaluate and manage multiple medical problems. Anesthesia records were reviewed. Patient is hemodynamically stable. Patient is stable and we will continue postoperative care with physical therapy, wound care, incentive spirometry, DVT prophylaxis with Xarelto and pain management with tramadol and RATCHET SETTER morphine. Osteoarthritis right knee failed outpatient treatment status post right total knee replacement Pain management with Tramadol and Dilaudid as needed for breakthrough pain Continue with PT - likely vasovagal episode with PT participation yesterday. Monitor. Continue on Ce Add Lactinex Postoperative anemia of acute blood loss mild continue to monitor Asthma, controlled, not in exacerbation Preop Chest x-ray personally reviewed revealing hyperinflation, read as emphysematous changes Continue patient's home Symbicort twice a day and Ventolin inhaler as needed Continue patient's home dose of Singulair 10 mg and Zyrtec 10mg daily Monitor respiratory status HLD Controlled per patient's report Continue patients Lovaza 4gm po daily Constipation Geraldine Colace BID Miralax daily monitor for BM DVT prophylaxis Xarelto 10 mg daily Discussed with patient and Umm Gary Apr 27, 2017 09:10
[2017-04-27] MEDS ORDERED: POLYETHYLENE GLYCOL 17 GM PKG PO ONE (09:15)
[2017-04-27] MEDS: ONDANSETRON HCL 4 MG/2 ML VIAL IVP PRN ×2 (10:40→16:13)
[2017-04-27] MEDS: RIVAROXABAN 10 MG TAB PO SCH (10:41)
[2017-04-27] MEDS: LACTOBACILLUS ACIDOPHILUS TAB PO SCH ×2 (10:41→20:13)
[2017-04-27] MEDS: DOCUSATE SODIUM 50 MG/SENNA 8.6 MG TAB PO SCH ×2 (10:41→20:14)
[2017-04-27 11:34] VITALS: BP 104/53; PULSE 67; RESP 16; TEMP 97.6; O2SAT 94
[2017-04-27 12:29] VITALS: O2SAT 92
[2017-04-27 17:48] VITALS: O2SAT 92
[2017-04-27 20:00] VITALS: BP 98/50; PULSE 78; RESP 16; TEMP 97.3; O2SAT 95
[2017-04-27] MEDS: MONTELUKAST SODIUM 10 MG TAB PO SCH (20:13)
[2017-04-28] VITALS: BP 130/56; PULSE 74; RESP 16; TEMP 97.7; O2SAT 94
[2017-04-28] MEDS: CETIRIZINE HCL 10 MG TAB PO SCH (07:32)
[2017-04-28] MEDS: LACTOBACILLUS ACIDOPHILUS TAB PO SCH (07:32)
[2017-04-28] MEDS: DOCUSATE SODIUM 50 MG/SENNA 8.6 MG TAB PO SCH (07:32)
[2017-04-28] MEDS: CALCIUM/VITAMIN D 250 MG/125 U TAB PO SCH ×2 (07:32→12:53)
[2017-04-28] MEDS: SODIUM CHLORIDE 0.9% FLUSH 5 ML FLUSH IVF SCH (07:33)
[2017-04-28] MEDS: BUDESONIDE-FORMOTEROL 80/4.5 MCG INHALER INH SCH (07:36)
[2017-04-28] MEDS: ONDANSETRON HCL 4 MG/2 ML VIAL IVP PRN (07:39)
[2017-04-28 08:00] VITALS: BP 115/47; PULSE 78; RESP 18; TEMP 99.3; O2SAT 90
[2017-04-28] MEDS ORDERED: BISACODYL 10 MG SUPP RECTAL ONE (08:45)
[2017-04-28] MEDS ORDERED: POLYETHYLENE GLYCOL 17 GM PKG PO SCH (09:00)
--- NOTE | 2017-04-28 09:29 | HHI.PR ---
Subjective Remarks Follow-up on patient status post right total knee replacement. Patient seen and examined today. Patient reports she is doing okay. Denies any acute medical complaints. Slept well. Passing flatus but still no BM. Denies any N/ V or abdominal pain. Good appetite. Denies any fever or chills. Denies any chest pain or shortness of breath. Right knee pain controlled. No further episodes of dizziness/lightheadedness. Objective Vitals Vital Signs Date Time Temp Pulse Resp B/P Pulse Ox O2 Delivery O2 Flow Rate FiO2 04/28/17 08:00 99.3 78 18 115/47 90 04/28/17 00:00 97.7 74 16 130/56 94 04/27/17 20:00 97.3 78 16 98/50 95 04/27/17 17:48 92 21 04/27/17 12:29 92 21 04/27/17 11:34 97.6 67 16 104/53 94 I/O 04/27/17 04/27/17 04/27/17 04/28/17 04/28/17 04/28/17 07:00 15:00 23:00 07:00 15:00 23:00 Intake Total 480 ml 600 ml 720 ml 480 ml Output Total 30 ml Balance 450 ml 600 ml 720 ml 480 ml Intake Oral 480 ml 600 ml 720 ml 480 ml Drainage Total 30 ml # Voids 2 4 2 2 # Bowel Movements 0 Result Diagram: 04/27/17 0742 04/27/17 0742 Imaging Last Impressions Knee X-Ray 04/25/17 1242 Signed Impressions: Service Date/Time: Tuesday, April 25, 2017 12:42 - CONCLUSION: Status post total knee arthroplasty. Kory Sims MD Objective Remarks GENERAL: This is a well-nourished, well-developed patient, in no apparent distress. Sitting up in hospital bed. Eating breakfast. Appears comfortable. SKIN: No rashes, ecchymoses or lesions. Cool and dry. HEENT: Atraumatic. Normocephalic. EOMI. No scleral icterus. No injection or drainage. MMM. Airway patent. NECK: Trachea midline. Supple. CARDIOVASCULAR: Regular rate and rhythm without murmurs, gallops, or rubs. RESPIRATORY: Clear to auscultation. Breath sounds equal bilaterally. No wheezes , rales, or rhonchi. GASTROINTESTINAL: Abdomen soft, non-tender, nondistended. No hepato-splenomegaly , or palpable masses. No guarding. MUSCULOSKELETAL: Extremities without clubbing, cyanosis, or edema. Right lower extremity with postop dressing that is clean, dry and intact. Able to move toes. Sensation grossly intact distally. NEUROLOGICAL: Awake and alert. Motor and sensory function grossly intact in bilateral lower extremities. Normal speech. Medications and IVs Current Medications Medications (Trade) Dose Ordered Sig/Lyly Route Start Time Stop Time Status Last Admin (NS Flush) 2 ml UNSCH PRN IVF 04/25/17 12:45 (NS Flush) 2 ml BID IVF 04/25/17 21:00 04/28/17 07:33 (Ultram) 50 mg Q4H PRN PO 04/25/17 12:45 04/26/17 08:10 (Ultram) 100 mg Q4H PRN PO 04/25/17 12:45 04/27/17 16:14 (Zofran Inj) 4 mg Q6H PRN IVP 04/25/17 12:45 04/28/17 07:39 (Colace) 100 mg BID PRN PO 04/25/17 12:45 04/27/17 20:14 (Ambien) 5 mg HS PRN PO 04/25/17 12:45 (Narcan Inj) 0.4 mg UNSCH PRN IV 04/25/17 12:45 (Benadryl) 25 mg Q6H PRN PO 04/25/17 12:45 (Morphine 1 Mg/ ml WRAPPER CASER) 30 mg UNSCH IV 04/25/17 13:30 04/25/17 14:22 WRAPPER CASER Dosage Infused (Pha) 1 1 Q8HR .XX 04/25/17 14:00 04/26/17 11:35 (D5W-1/2 NS 1000 ml Inj) 1,000 ml @ 125 mls/hr Q8H IV 04/25/17 14:00 04/25/17 23:42 (Dilaudid) 4 mg Q4H PRN PO 04/25/17 12:45 (Ventolin Hfa Inh) 2 puff Q4HR PRN INH 04/25/17 13:45 (ZyrTEC) 10 mg DAILY PO 04/26/17 09:00 04/28/17 07:32 (Singulair) 10 mg HS PO 04/25/17 21:00 04/27/17 20:13 (Oscal-D 250-125) 500 mg TID PO 04/25/17 18:00 04/28/17 07:32 (Symbicort 80-4.5 Mcg Inh) 2 puff BID INH 04/25/17 21:00 04/28/17 07:36 (Xarelto) 10 mg Q24H PO 04/26/17 12:00 04/27/17 10:41 (Lactinex) 1 tab Q12HR PO 04/27/17 09:15 04/28/17 07:32 (Geraldine-Colace) 1 tab BID PO 04/27/17 09:15 04/28/17 07:32 (Miralax) 17 gm DAILY PO 04/28/17 09:00 A/P Assessment and Plan 76-year-old female presenting with chronic right knee pain affecting her activities of daily living. Patient has osteoarthritis and failed attempts at outpatient treatment and underwent a right total knee replacement performed by Dr. Tobias Washington who requested consultation to evaluate and manage multiple medical problems. Anesthesia records were reviewed. Patient is hemodynamically stable. Patient is stable and we will continue postoperative care with physical therapy, wound care, incentive spirometry, DVT prophylaxis with Xarelto and pain management with tramadol and WRAPPER CASER morphine. Osteoarthritis right knee failed outpatient treatment status post right total knee replacement Pain management with Tramadol and Dilaudid as needed for breakthrough pain Continue with PT - ambulated 60 feet Continue CPM use per ortho instructions Postoperative anemia of acute blood loss mild continue to monitor Asthma, controlled, not in exacerbation Preop Chest x-ray personally reviewed revealing hyperinflation, read as emphysematous changes Continue patient's home Symbicort twice a day and Ventolin inhaler as needed Continue patient's home dose of Singulair 10 mg and Zyrtec 10mg daily Monitor respiratory status HLD Controlled per patient's report Continue patients Lovaza 4gm po daily Constipation passing flatus but no BM patient agreeable to Dulcolax suppository which was ordered Geraldine Colace BID Miralax daily monitor for BM DVT prophylaxis Xarelto 10 mg daily Discussed with patient and Dr. Hensley Patient is cleared for discharge from hospitalist standpoint. Umm Vo Apr 28, 2017 09:29
[2017-04-28 11:59] VITALS: BP 131/57; PULSE 70; RESP 18; TEMP 97.8; O2SAT 94
[2017-04-28] MEDS: RIVAROXABAN 10 MG TAB PO SCH (12:52)
--- NOTE | 2017-04-30 08:40 | MD ---
cc: CHRISTIANO BANKS NORMAN ADMISSION DATE: 04/25/2017 DISCHARGE DATE: 04/28/2017 ADMITTING DIAGNOSIS: 1. Osteoarthritis of the right knee with a history of a complex tear of the medial meniscus. 2. Effusion right knee. 3. Synovitis right knee. 4. Popliteal cyst right knee. 5. Pain right knee. DISCHARGE DIAGNOSIS: 1. Osteoarthritis of the right knee with a history of a complex tear of the medial meniscus. 2. Effusion right knee. 3. Synovitis right knee. 4. Popliteal cyst right knee. 5. Pain right knee. HISTORY OF PRESENT ILLNESS: A 76-year-old white female with a one-year history of right knee pain symptoms being related to routine walking activities without a direct injury to the knee occurring. She had conformed to conservative management in the past as well as being evaluated and treated by her primary care physician which included cortisone injections that did not prove to be of any appreciable benefit. She had been prescribed additional medication for pain as well as taking Advil with minimal benefit. A subsequent MRI scan of her right knee identified a large complex tear of the medial meniscus involving the posterior horn with extrusion of the body segment. Additional osteoarthritic findings about the medial compartment and the patellofemoral joint associated with an effusion and moderate severe synovitis and a large popliteal cyst. The patient later underwent orthopedic evaluation that resulted in arthroscopic surgery having been completed in September of this year. At that time, a partial medial meniscectomy as well as chondroplasty of the patellofemoral joint was accomplished. Postoperatively the patient was followed on an outpatient basis during which time she did experience lingering soreness about her right knee while she continued to conform to her daily routine, which included walking exercise activities and taking Aleve for pain management. Her symptoms unfortunately became more pronounced with the passage of time which began to limit all ambulatory activities associated with an intermittent giving-way sensation for which the patient was requiring use of a cane as an ambulatory aid. She had fallen on at least one occasion but was able to arise independently thereafter. She had been seen more recently by her primary care physician at which time she noted ongoing symptoms and was encouraged to return to the office for further orthopedic disposition. Subsequent x-ray studies revealed obvious degenerative changes with pronounced narrowing throughout the medial compartment and suspicion for an osteochondral defect about the medial tibial plateau and secondary involvement of the patellofemoral articulation. Findings and treatment options were reviewed with the patient at that time, the pros and cons of continuing with conservative management versus operative intervention that would involve a total knee arthroplasty were outlined in detail. Emphasis was made regarding the fact that the decision to proceed with surgery would be left entirely to the patient's discretion. The patient returned to the office thereafter indicating that her symptoms had progressed to a point in time where she was having to modify all activities of daily living as well as being compromised with associated pain related to weightbearing activities. Continued use of medication was not proven to be successful. Given the overall clinical picture, the patient had expressed her desire to proceed with operative treatment as discussed, and in compliance with her wishes she is currently being admitted in order that total knee arthroplasty be accomplished. Her physical examination at the time admission revealed a fullness about the right knee that was consistent with an effusion, medial joint line tenderness without palpable deformity. Apprehension and compression signs negative. Limited mobility in the 100 degree range of flexion with pain at the extreme of motion. No collateral ligamentous instability. Fantasma test and draw signs negative. Pivot shift and Pieter sign positive for medial compartment pain. Straight-leg raising was negative at 80 degrees. Satisfactory mobility of the right hip with no associated pain. Antalgic gait. HOSPITAL COURSE: Prior to admission to the hospital, the patient had undergone medical evaluation and clearance for surgery as completed by her primary care physician, Dr. Banks. She was taken to the operating room on 25 April 2017 and on that date underwent a right total knee arthroplasty completed in an uncomplicated manner. The patient was noted to have tolerated her operative procedure well. Her postoperative course was stable thereafter. She was progressively mobilized under the guidance of physical therapy being permitted weightbearing to tolerance about her right lower extremity. Hemoglobin/hematocrit assessment postoperatively was 12.1 and 35.4, respectively. The patient was progressively mobilized under the guidance of physical therapy being permitted weightbearing to tolerance about the right lower extremity. Follow up examination of her surgical wound noted it to be intact healing favorably with no evidence of infection. Medical followup per the hospitalist service. DVT prophylaxis initiated. financial services associate consulted to assist with discharge planning. The patient had indicated her desire to be discharged home and continue her rehabilitation on an outpatient basis. Plans were finalized in this regard and pending medical clearance she was scheduled for discharge on the third postoperative day at which time she was noted making steady progress with regards to her rehab program. She was scheduled to be seen in office followup in approximately four weeks. Her condition at the time of discharge stable. Prognosis favorable. DISCHARGE MEDICATIONS: 1. Ultram 50 milligrams #40. 2. Aspirin 325 milligrams one tab twice daily for three weeks #40. MD KATY Panchal/JCC /6:45 AM /11:55 AM
== END 2017-04-28 17:51 | disposition home health service (06) | DRG 470 ==
LOC: HSDI 04-25 06:36 → N06A 04-25 19:25
PROVIDERS: ADMIT Orthopaedic Surgery; ATTEND Orthopaedic Surgery
PROC: 3E0T3BZ Introduction of Anesthetic Agent into Peripheral Nerves and Plexi, Percutaneous Approach (ICD-10-PCS; 2017-04-25)
PROC: 0SRC0J9 Replacement of Right Knee Joint with Synthetic Substitute, Cemented, Open Approach (ICD-10-PCS; principal; 2017-04-25 09:52)
DX: M17.11 Unilateral primary osteoarthritis, right knee (principal); D62 Acute posthemorrhagic anemia; R55 Syncope and collapse; M65.9 Synovitis and tenosynovitis, unspecified; M71.21 Synovial cyst of popliteal space [Baker], right knee; M23.221 Derangement of posterior horn of medial meniscus due to old tear or injury, right knee; K59.00 Constipation, unspecified; J45.909 Unspecified asthma, uncomplicated; E78.00 Pure hypercholesterolemia, unspecified
CPT/HCPCS: 73560; 80048; 85014; 85018; 85025; 86850; 86900; 86901; 88305; 94150; C1776; J0690; J1100; J2250; J2270; J2370; J2405; J3010; J7120; L1830

== ENCOUNTER → 2017-04-16 | Outpatient (CLI) | payer MEDICARE, OTHER ==
[~2017-04-16] MED LIST changes: +ASPI325T PO; +BOSW5TAB PO; +HOSP BED1; +ULTR50TA5 PO; +WALKER WHEELS/F1 MIS
[2017-04-16 08:53] LABS: AUTOMATED NEUTROPHIL # 3.8 TH/MM3 (1.8-7.7); BASOPHIL # 0.1 TH/MM3 (0-0.2); BASOPHIL % 0.9 % (0.0-2.0); EOSINOPHIL # 0.2 TH/MM3 (0-0.4); EOSINOPHIL % 3.1 % (0.0-4.0); HEMATOCRIT 40.8 % (35.0-46.0); HEMO FLAGS DIFF FINAL; LYMPH % 19.9 % (9.0-44.0); LYMPHOCYTE # 1.2 TH/MM3 (1.0-4.8); MEAN CELL VOLUME 89.3 FL (80.0-100.0); MEAN CORPUSCULAR HEMOGLOBIN 30.9 PG (27.0-34.0); MEAN CORPUSCULAR HGB CONC 34.6 % (32.0-36.0); MONO % 11.3 % (0.0-8.0); NEUT % 64.8 % (16.0-70.0); PLATELET COUNT 225 TH/MM3 (150-450); RED BLOOD COUNT 4.57 MIL/MM3 (4.00-5.30); RED CELL DISTRIBUTION WIDTH 13.4 % (11.6-17.2); WHITE BLOOD COUNT 5.9 TH/MM3 (4.0-11.0)
[2017-04-16 09:07] LABS: PROTHROMBIN TIME - PATIENT 10.9 SEC (9.8-11.6)
[2017-04-16 09:09] LABS: BLOOD, URINE NEG (NEG); GLUCOSE,URINE NEG (NEG); KETONE, URINE NEG (NEG); NITRITE,URINE NEG (NEG); URINE COLOR YELLOW (YELLW/STRAW)
[2017-04-16 09:24] LABS: POTASSIUM 4.1 MEQ/L (3.5-5.1)
--- NOTE | 2017-04-16 09:27 | RADRPT ---
EXAM DATE/TIME: 04/16/2017 09:13 [facility] COMPARISON: CHEST PA & LAT, September 21, 2016, 10:39. INDICATIONS : Evaluate for pneumonia, pneumothorax, or communicable disease. Pre op for total knee surgery. MEDICAL HISTORY : Asthma. SURGICAL HISTORY : None. ENCOUNTER: Initial ACUITY: 1 day PAIN SCORE: 0/10 LOCATION: Bilateral chest FINDINGS: Lungs are hyperinflated but clear. There is mild central interstitial prominence and peripheral emphy sematous change. Heart and mediastinal structures are stable. Osseous structures are intact. CONCLUSION: Emphysematous changes. No evidence of acute cardiopulmonary process or interval change. Guille Galeas MD on April 16, 2017 at 9:20 Board Certified Radiologist. This report was verified electronically.
[2017-04-16 09:29] LABS: COMMENT (UR) CATH-CULT NOT IND; CULTURE IF INDICATED CATH CULTURE NOT IND
--- NOTE | 2017-04-16 16:28 | EKG ---
Date Performed: 04/16/2017 Time Performed: 08:46:03 PTAGE: 76 years EKG: Sinus rhythm POSSIBLE RIGHT VENTRICULAR CONDUCTION DELAY BORDERLINE ECG PREVIOUS TRACING : 02/02/2017 11.29 Since previous tracing, no significant change noted DOCTOR: Irvin Limon Interpretating Date/Time 04/16/2017 16:27:28
== END ==
LOC: CPRE 08:06
PROVIDERS: ATTEND Orthopaedic Surgery
DX: Z01.810 Encounter for preprocedural cardiovascular examination (principal); Z01.811 Encounter for preprocedural respiratory examination; Z01.812 Encounter for preprocedural laboratory examination; M17.11 Unilateral primary osteoarthritis, right knee; R94.31 Abnormal electrocardiogram [ECG] [EKG]
CPT/HCPCS: 36415; 71020; 80048; 81001; 85025; 85610; 93005

== ENCOUNTER 2017-09-28 12:10 | Emergency (ER) | payer MEDICARE, OTHER ==
[~2017-09-28] VITALS: Ht 167.6 cm; Wt 65.0 kg
[~2017-09-28 12:10] MED LIST changes: -ASPI-110 PO; +ASPI-183 PO; -ASPI325T PO; -NAPR220C22 PO; +TRAM50 PO; -ULTR50TA5 PO
[2017-09-28 12:13] VITALS: BP 175/77; PULSE 67; RESP 30; TEMP 98.2; O2SAT 99
--- NOTE | 2017-09-28 12:59 | PD ---
HPI Chief Complaint: Abdominal Pain Time Seen by Provider: 12:58 Travel History International Travel<30 days: No Contact w/Intl Traveler<30days: No Traveled to known affect area: No History of Present Illness HPI 76-year-old female presents the emergency department with possible recurrent ventral hernia with severe pain anteriorly in the line abdomen since this morning. Patient does not do any heavy lifting, cough, or other injuries. Patient is in distress nauseous and she denies vomiting. No fever or other symptoms currently. Patient states she was diagnosed with ventral hernia back in January 2017. This was evaluated afterwards and found to be nonsurgical. At that time the area was filled with omentum was 3.4 cm abdominal wall opening. Patient is 10 out of 10. It is not changed since 11:00 this morning. She states it's cramping and sharp. She is allergic to acetaminophen and codeine. PFSH Past Medical History Asthma: Yes Blood Disorders: No Cancer: No Cardiovascular Problems: No COPD: No Diabetes: No Diminished Hearing: No Endocrine: No Genitourinary: No Hepatitis: No Hiatal Hernia: No Immune Disorder: No Musculoskeletal: Yes (oa) Neurologic: No Psychiatric: No Reproductive: No Respiratory: Yes (asthma) Pneumonia: Yes Sleep Apnea: No Thyroid Disease: No ?: Not : 3 Para: 3 Past Surgical History Abdominal Surgery: No AICD: No Body Medical Devices: NONE Cardiac Surgery: No Ear Surgery: No Endocrine Surgery: No Eye Surgery: No Genitourinary Surgery: No Gynecologic Surgery: Yes (PARTIAL HYSTERECTOMY) Hysterectomy: Yes (PARTIAL) Joint Replacement: No Oral Surgery: No Pacemaker: No Thoracic Surgery: No Other Surgery: Yes (VEIN STRIPPING) Social History Alcohol Use: No Tobacco Use: No Substance Use: No Allergies-Medications (Allergen,Severity, Reaction): Coded Allergies: acetaminophen (Unverified Allergy, Severe, Itching, 09/28/17) codeine (Unverified Adverse Reaction, Severe, Nausea/Vomiting, 09/28/17) Reported Meds & Prescriptions Reported Meds & Active Scripts Active Ultram (Tramadol HCl) 50 Mg Tab 50 Mg PO Q4H PRN Reported Aspirin 81 Mg Chew 81 Mg CHEW DAILY Osteo Bi-Flex One A Day (Znytvgrwt-Vwmmpsakweh-Luatpcu) 1 Tab 1 Tab PO DAILY Vision Vitamins (Beta-Carotene(A)-Vits C,E/Mins) 1 Each Tablet 1 Cap PO DAILY Cetirizine (Cetirizine HCl) 10 Mg Tab 10 Mg PO DAILY Caltrate 600+D Plus Candy Maker 600-800 mg-Unit (Calcium Carbonate-Vitamin D W/) 1 Tab Tab 1 Tab PO TID Proventil Hfa 6.7 GM Inh (Albuterol Sulfate) 90 Mcg/Act Aer 2 Puff INH Q4-6H PRN Lovaza (Jepuv-6-Psmj Ethyl Esters) 1 Gm Cap 4 Gm PO DAILY Montelukast (Montelukast Sodium) 10 Mg Tab 10 Mg PO HS Advair Diskus Inh (Fluticasone-Salmeterol Inh) 100-50 Mcg/Blist Aer 1 Puff INH BID Rinse mouth after use. Review of Systems Except as stated in HPI: all other systems reviewed are Neg General / Constitutional: No: Fever Eyes: No: Visual changes HENT: No: Headaches Cardiovascular: No: Chest Pain or Discomfort Respiratory: No: Shortness of Breath Gastrointestinal: Positive: Nausea, Abdominal Pain, No: Vomiting, Diarrhea, Hematemesis, Hematochezia, Constipation, Indigestion, Dysphagia, Loss of Appetite Genitourinary: No: Urgency, Frequency, Dysuria Musculoskeletal: No: Pain Skin: No Rash Neurologic: No: Weakness Psychiatric: No: Depression Endocrine: No: Polydipsia Hematologic/Lymphatic: No: Easy Bruising Physical Exam Narrative GENERAL: Patient is in moderate to severe distress. SKIN: Warm and dry. Normal color. Normal turgor. No diaphoresis. HEAD: Atraumatic. Normocephalic. EYES: Pupils equal and round. No scleral icterus. No injection or drainage. ENT: No nasal bleeding or discharge. Mucous membranes pink and moist. Thanks is clear. Airway is patent NECK: Trachea midline. No JVD. Supple nontender. CARDIOVASCULAR: Tachycardic rate and normal rhythm. RESPIRATORY: No accessory muscle use. Clear to auscultation. Breath sounds equal bilaterally. GASTROINTESTINAL: Abdomen soft, obvious 4 cm round firm tender bulge on the upper central right abdomen consistent with ventral hernia. Patient is reduced with gradual increased pressure to this area, without significant relief of her pain. Bowel sounds are quiet in all quadrants. Hepatic and splenic margins not palpable. MUSCULOSKELETAL: Extremities without clubbing, cyanosis, or edema. No obvious deformities. NEUROLOGICAL: Awake and alert. No obvious cranial nerve deficits. Motor grossly within normal limits. Five out of 5 muscle strength in the arms and legs. Normal speech. PSYCHIATRIC: Appropriate mood and affect; insight and judgment normal. Data Data Last Documented VS Vital Signs Date Time Temp Pulse Resp B/P (MAP) Pulse Ox O2 Delivery O2 Flow Rate FiO2 09/28/17 14:53 68 18 154/66 (95) 98 Room Air 09/28/17 12:13 98.2 Orders Orders Complete Blood Count With Diff (09/28/17 13:03) Comprehensive Metabolic Panel (09/28/17 13:03) Lipase (09/28/17 13:03) Lactic Acid (09/28/17 13:03) Prothrombin Time / Inr (Pt) (09/28/17 13:03) Act Partial Throm Time (Ptt) (09/28/17 13:03) Urinalysis - C+S If Indicated (09/28/17 13:03) Ct Abd/Pel W Iv Contrast(Rout) (09/28/17 13:03) Iv Access Insert/Monitor (09/28/17 13:03) Ecg Monitoring (09/28/17 13:03) Oximetry (09/28/17 13:03) NPO (09/28/17 13:03) Ondansetron Inj (Zofran Inj) (09/28/17 13:15) Sodium Chlor 0.9% 1000 Ml Inj (Ns 1000 M (09/28/17 13:03) Sodium Chloride 0.9% Flush (Ns Flush) (09/28/17 13:15) Electrocardiogram (09/28/17 13:03) Ckmb (Isoenzyme) Profile (09/28/17 13:03) Chest, Single Ap (09/28/17 13:03) Morphine Inj (Morphine Inj) (09/28/17 13:15) Lorazepam Inj (Ativan Inj) (09/28/17 13:15) CKMB (09/28/17 13:23) CKMB% (09/28/17 13:23) Iohexol 350 Inj (Omnipaque 350 Inj) (09/28/17 15:22) Sodium Chlor 0.9% 1000 Ml Inj (Ns 1000 M (09/28/17 15:30) Labs Laboratory Tests Test 09/28/17 13:23 09/28/17 14:50 White Blood Count 11.5 TH/MM3 Red Blood Count 4.95 MIL/MM3 Hemoglobin 14.8 GM/DL Hematocrit 43.9 % Mean Corpuscular Volume 88.7 FL Mean Corpuscular Hemoglobin 29.9 PG Mean Corpuscular Hemoglobin Concent 33.7 % Red Cell Distribution Width 14.5 % Platelet Count 282 TH/MM3 Mean Platelet Volume 9.2 FL Neutrophils (%) (Auto) 79.2 % Lymphocytes (%) (Auto) 10.8 % Monocytes (%) (Auto) 7.7 % Eosinophils (%) (Auto) 1.4 % Basophils (%) (Auto) 0.9 % Neutrophils # (Auto) 9.1 TH/MM3 Lymphocytes # (Auto) 1.2 TH/MM3 Monocytes # (Auto) 0.9 TH/MM3 Eosinophils # (Auto) 0.2 TH/MM3 Basophils # (Auto) 0.1 TH/MM3 CBC Comment DIFF FINAL Differential Comment Prothrombin Time 10.3 SEC Prothromb Time International Ratio 1.0 RATIO Activated Partial Thromboplast Time 26.9 SEC Blood Urea Nitrogen 15 MG/DL Creatinine 0.70 MG/DL Random Glucose 97 MG/DL Total Protein 8.7 GM/DL Albumin 4.4 GM/DL Calcium Level 9.4 MG/DL Alkaline Phosphatase 85 U/L Aspartate Amino Transf (AST/SGOT) 33 U/L Alanine Aminotransferase (ALT/SGPT) 32 U/L Total Bilirubin 0.5 MG/DL Sodium Level 134 MEQ/L Potassium Level 4.1 MEQ/L Chloride Level 98 MEQ/L Carbon Dioxide Level 26.9 MEQ/L Anion Gap 9 MEQ/L Estimat Glomerular Filtration Rate 82 ML/MIN Lactic Acid Level 2.2 mmol/L Total Creatine Kinase 221 U/L Urine Color YELLOW Urine Turbidity CLOUDY Urine pH 8.0 Urine Specific [place] 1.014 Urine Protein NEG mg/dL Urine Glucose (UA) NEG mg/dL Urine Ketones 40 mg/dL Urine Occult Blood NEG Urine Nitrite NEG Urine Bilirubin NEG Urine Urobilinogen LESS THAN 2.0 MG/DL Urine Leukocyte Esterase NEG Urine RBC 7 /hpf Urine WBC 2 /hpf Urine Squamous Epithelial Cells 2 /hpf Urine Amorphous Sediment FEW Urine Mucus FEW /lpf Microscopic Urinalysis Comment CULT NOT INDICATED MDM Medical Decision Making Medical Screen Exam Complete: Yes Emergency Medical Condition: Yes Medical Record Reviewed: Yes Differential Diagnosis Acute abdominal pain. Incarcerated ventral hernia. Ischemic bowel. Narrative Course She is in moderate to severe distress. Hernia is seemingly spontaneously reduced with topical pressure. Chest x-ray is ordered. EKG is ordered. Labs ordered including CBC, CMP, lipase, CRP. CT of the abdomen with IV contrast is ordered. Patient is given 2 mg morphine IV as well as 1 mg lorazepam IV, as well as 4 mg Zofran IV. Patient is given 1000 mL normal saline bolus. CBC shows slight leukocytosis of 11.5. Coags are unremarkable. Urinalysis is normal. CMP significant for sodium 134, lactic acid is 2.2, creatinine kinase is 221. Second 1000 mL normal saline bolus ordered. Abdominal CT shows: 1. There is a small ventral hernia the date the level of the xiphoid with omental fat herniated through the defect. 2. Multiple simple cysts within the liver. 3. Small simple cyst within the left kidney. 4. Degenerative changes throughout the spine. Patient was discussed with Dr. Werner, who examined the patient as well. Patient is felt to be stable for discharge at this time. Recommend close follow-up with general surgery. Patient given tramadol 50 mg one every 6 hours when necessary pain. Patient is to rest and take it easy and return immediately if symptoms recur. Diagnosis Primary Impression: Abdominal hernia Qualified Codes: K43.9 - Ventral hernia without obstruction or gangrene Referrals: Young Roberto MD call for appointment Patient Instructions: General Instructions, Ventral Hernia (DC) Additional Instructions: CBC shows slight leukocytosis of 11.5. Coags are unremarkable. Urinalysis is normal. CMP significant for sodium 134, lactic acid is 2.2, creatinine kinase is 221. Second 1000 mL normal saline bolus ordered. Abdominal CT shows: 1. There is a small ventral hernia the date the level of the xiphoid with omental fat herniated through the defect. 2. Multiple simple cysts within the liver. 3. Small simple cyst within the left kidney. 4. Degenerative changes throughout the spine. Patient was discussed with Dr. Werner, who examined the patient as well. Patient is felt to be stable for discharge at this time. Recommend close follow-up with general surgery. Patient given tramadol 50 mg one every 6 hours when necessary pain. Patient is to rest and take it easy and return immediately if symptoms recur. Med/Other Pt SpecificInfo: Prescription(s) given Disposition: 01 DISCHARGE HOME Condition: Stable Young Perez Sep 28, 2017 12:59
[2017-09-28] MEDS ORDERED: SODIUM CHLOR 0.9% 1000 ML INJ 1,000 ML IV SCH (13:03)
[2017-09-28] MEDS ORDERED: LORazepam 2 MG/ML VIAL IV PUSH ONE (13:15)
[2017-09-28] MEDS ORDERED: ONDANSETRON HCL 4 MG/2 ML VIAL IVP ONE (13:15)
[2017-09-28] MEDS ORDERED: SODIUM CHLORIDE 0.9% FLUSH 10 ML FLUSH IV FLUSH PRN (13:15)
[2017-09-28] MEDS ORDERED: MORPHINE SULFATE 2 MG/ML INJ IV PUSH ONE (13:15)
[2017-09-28] MEDS ORDERED: ASPI-516 CHEW (13:19)
[2017-09-28 13:27] VITALS: O2SAT 99
--- NOTE | 2017-09-28 13:59 | RADRPT ---
EXAM DATE/TIME: 09/28/2017 13:32 [facility] COMPARISON: CHEST PA & LAT, April 16, 2017, 9:13. INDICATIONS : Chest pain. MEDICAL HISTORY : Asthma. SURGICAL HISTORY : None. ENCOUNTER: Initial ACUITY: 1 day PAIN SCORE: 10/10 LOCATION: Bilateral chest FINDINGS: A single view of the chest demonstrates the lungs to be symmetrically aerated without evidence of mas s, infiltrate or effusion. The cardiomediastinal contours are unremarkable. Osseous structures are intact. CONCLUSION: No acute disease. No significant change has occurred. Sarwat Lara MD on September 28, 2017 at 13:56 Board Certified Radiologist. This report was verified electronically.
[2017-09-28 14:01] LABS: AUTOMATED NEUTROPHIL # 9.1 TH/MM3 (1.8-7.7); BASOPHIL # 0.1 TH/MM3 (0-0.2); BASOPHIL % 0.9 % (0.0-2.0); EOSINOPHIL # 0.2 TH/MM3 (0-0.4); EOSINOPHIL % 1.4 % (0.0-4.0); HEMATOCRIT 43.9 % (35.0-46.0); HEMOGLOBIN 14.8 GM/DL (11.6-15.3); LYMPH % 10.8 % (9.0-44.0); LYMPHOCYTE # 1.2 TH/MM3 (1.0-4.8); MEAN CELL VOLUME 88.7 FL (80.0-100.0); MEAN CORPUSCULAR HEMOGLOBIN 29.9 PG (27.0-34.0); MEAN CORPUSCULAR HGB CONC 33.7 % (32.0-36.0); MEAN PLATELET VOLUME 9.2 FL (7.0-11.0); MONO % 7.7 % (0.0-8.0); MONOCYTE # 0.9 TH/MM3 (0-0.9); NEUT % 79.2 % (16.0-70.0); PLATELET COUNT 282 TH/MM3 (150-450); RED BLOOD COUNT 4.95 MIL/MM3 (4.00-5.30); RED CELL DISTRIBUTION WIDTH 14.5 % (11.6-17.2); WHITE BLOOD COUNT 11.5 TH/MM3 (4.0-11.0)
[2017-09-28 14:14] LABS: PROTHROMBIN TIME - PATIENT 10.3 SEC (9.8-11.6)
[2017-09-28 14:20] LABS: ALBUMIN 4.4 GM/DL (3.4-5.0); ALKALINE PHOSPHATASE 85 U/L (45-117); ALT (GPT) 32 U/L (10-53); AST (GOT) 33 U/L (15-37); BICARBONATE 26.9 MEQ/L (21.0-32.0); BLOOD UREA NITROGEN 15 MG/DL (7-18); CALCIUM 9.4 MG/DL (8.5-10.1); CHLORIDE 98 MEQ/L (98-107); GLOMERULAR FILTRATION RATE 82 ML/MIN (>89); GLUCOSE,RANDOM 97 MG/DL (74-106); SODIUM (NA) 134 MEQ/L (136-145); TOTAL BILIRUBIN ADULT 0.5 MG/DL (0.2-1.0); TOTAL PROTEIN 8.7 GM/DL (6.4-8.2)
[2017-09-28 14:53] VITALS: BP 154/66; PULSE 68; RESP 18; O2SAT 98
[2017-09-28 15:18] LABS: AMORPHOUS SEDIMENT, URINE FEW; BILIRUBIN, URINE NEG (NEG); BLOOD, URINE NEG (NEG); GLUCOSE,URINE NEG (NEG); KETONE, URINE 40 mg/dL (NEG); MUCUS URINE FEW /lpf (OCC); NITRITE,URINE NEG (NEG); SQUAMOUS EPITHELIAL CELL URINE 2 /hpf (0-5); URINE COLOR YELLOW (YELLW/STRAW); URINE LEUKOCYTE ESTERASE NEG (NEG)
[2017-09-28] MEDS ORDERED: IOHEXOL 350 MG/ML 10 ML VIAL (for RAD DIAG) IVCONTRAST ONE (15:22)
[2017-09-28] MEDS ORDERED: SODIUM CHLOR 0.9% 1000 ML INJ 1,000 ML IV ONE (15:30)
--- NOTE | 2017-09-28 16:01 | RADRPT ---
EXAM DATE/TIME: 09/28/2017 15:19 [facility] COMPARISON: CT ABDOMEN & PELVIS W CONTRAST, February 02, 2017, 13:46. INDICATIONS : Right upper abdominal pain since this morning. IV CONTRAST: 80 cc Omnipaque 350 (iohexol) IV ORAL CONTRAST: No oral contrast ingested. RADIATION DOSE: 9.98 CTDIvol (mGy) MEDICAL HISTORY : Hepatic cysts SURGICAL HISTORY : Hysterectomy. ENCOUNTER: Initial ACUITY: 1 day PAIN SCALE: 10/10 LOCATION: Right upper quadrant TECHNIQUE: Volumetric scanning of the abdomen and pelvis was performed. Using automated exposure control and ad justment of the mA and/or kV according to patient size, radiation dose was kept as low as reasonably achievable to obtain optimal diagnostic quality images. DICOM format image data is available electro nically for review and comparison. FINDINGS: The limited portion of lung bases visualized is clear. Examination of the liver demonstrates scattered simple cysts within the liver. The largest measures 2 .8 x 3.4 cm. The spleen, pancreas, adrenal glands and right kidney are unremarkable in appearance. Note is made of a 2.9 cm simple cyst arising from the left kidney. The abdominal aorta is normal in caliber. There is no retroperitoneal lymphadenopathy. No free air or free fluid is seen. Note is made of a ventral hernia in the upper abdominal wall. There is omental fat herniated through the defect. There is no free fluid within the pelvis. No iliac or inguinal adenopathy is seen. The loops of small large bowel are unremarkable. There degenerative changes within the spine. CONCLUSION: 1. There is a small ventral hernia the date the level of the xiphoid with omental fat herniated throu gh the defect. 2. Multiple simple cysts within the liver. 3. Small simple cyst within the left kidney. 4. Degenerative changes throughout the spine. Aries Sims MD on September 28, 2017 at 15:55 Board Certified Radiologist. This report was verified electronically.
[2017-09-28] MEDS ORDERED: TRAM50TA PO (16:34)
[2017-09-28 16:36] LABS: LIPASE 229 U/L (73-393)
[2017-09-28] MEDS ORDERED: ZOFR4TAB PO (16:47)
--- NOTE | 2017-09-29 13:38 | EKG ---
Date Performed: 09/28/2017 Time Performed: 13:31:28 PTAGE: 76 years EKG: Sinus rhythm WITH OCCASIONAL VENTRICULAR PREMATURE COMPLEXES BORDERLINE ECG Compared to PREVIOUS TRACING , ectopy is now seen. PREVIOUS TRACIN04/16/2017 08.46 DOCTOR: Alexys Anaya Interpretating Date/Time 09/29/2017 13:36:32
== END 2017-09-28 16:51 | disposition home or self-care (01) ==
LOC: NEPD 12:10
DX: K43.9 Ventral hernia without obstruction or gangrene (principal); N28.1 Cyst of kidney, acquired; K76.89 Other specified diseases of liver; J45.909 Unspecified asthma, uncomplicated; R94.31 Abnormal electrocardiogram [ECG] [EKG]; Z88.6 Allergy status to analgesic agent; Z79.82 Long term (current) use of aspirin; Z79.899 Other long term (current) drug therapy
CPT/HCPCS: 71045; 74177; 80053; 81001; 82550; 82552; 83605; 83690; 85025; 85610; 85730; 93005; 96374; 96375; 99285; J2060; J2270; J2405; J7030; Q9967